=== PATIENT | female | born 1940 | race Caucasian/White ===

== ENCOUNTER 2018-06-22 20:29 | Inpatient (IN) | payer MEDICARE, OTHER ==
[~2018-06-22] VITALS: Ht 162.6 cm; Wt 86.7 kg
--- NOTE | 2018-06-22 20:43 | ED General ---
General Stated Complaint: FEELS ILL,FEVER Source of Information: Patient Exam Limitations: No Limitations History of Present Illness Date Seen by Provider: Jun 22, 2018 Time Seen by Provider: 20:40 Initial Comments To ER per EMS from home with reports of feeling ill and fever. Reportedly the fever was up to 103 pain she's had rhinorrhea, cough and some shortness of breath. She reports that she called 911 because she was too weak to get herself up. She's also had some diarrhea and nausea without vomiting for a few days. She denies chest pain. Denies abdominal pain. She does have known myasthenia gravis which is managed with mycophenolate, prednisone 2.5 mg by mouth daily, pyridostigmine 60mg, myrbetric. She has not missed any doses of these or stopped any of them however she has not had today's dosage of any of them. Primary care is Dr. CHINCHILLA. Timing/Duration: 2-3 Days Severity: Moderate Associated Systoms: Cough, Fever/Chills, Malaise, Nausea/Vomiting, Weakness Allergies and Home Medications Allergies Coded Allergies: azathioprine (Verified Allergy, Unknown, 06/22/18) methotrexate (Verified Allergy, Unknown, 06/22/18) sulfamethoxazole (Verified Allergy, Unknown, 06/22/18) trimethoprim (Verified Allergy, Unknown, 06/22/18) Patient Home Medication List Home Medication List Reviewed: Yes Review of Systems Review of Systems Constitutional: see HPI, malaise, weakness Respiratory: see HPI, cough, short of breath Cardiovascular: No chest pain Gastrointestinal: No abdominal pain; diarrhea, nausea Genitourinary: no symptoms reported Musculoskeletal: no symptoms reported Skin: no symptoms reported Psychiatric/Neurological: No Symptoms Reported Hematologic/Lymphatic: No Symptoms Reported Past Nnlqhja-Jmbfgd-Depjrm Hx Patient Social History Recent Foreign Travel: No Contact w/Someone Who Travel: No Physical Exam Vital Signs Vital Signs - First Documented 06/22/18 20:30 Temp 101.2 Pulse 91 Resp 20 B/P (MAP) 149/75 (99) Pulse Ox 92 Capillary Refill : Height, Weight, BMI Height: '" Weight: lbs. oz. kg; BMI Method: General Appearance: Chronically ill, Other (very weak but respiratory drive and air movement is normal. ) Eyes: Bilateral Eye Normal Inspection, Bilateral Eye PERRL, Bilateral Eye EOMI , Bilateral Eye Other (ptosis bilaterally) HEENT: PERRL/EOMI, Other (dry mucous membranes) Neck: Full Range of Motion, Normal Inspection Respiratory: Normal Breath Sounds, No Accessory Muscle Use, No Respiratory Distress Cardiovascular: Regular Rate, Rhythm, Normal Peripheral Pulses Gastrointestinal: Normal Bowel Sounds, Non Tender, Soft Extremity: Normal Capillary Refill, Normal Inspection Neurologic/Psychiatric: Alert, Oriented x3, No Motor/Sensory Deficits Skin: Normal Color, Warm/Dry Focused Exam Lactate Level 06/22/18 20:40: Lactic Acid Level 0.88 Lactic Acid Level Laboratory Tests Test 06/22/18 20:40 Lactic Acid Level 0.88 MMOL/L (0.50-2.00) Progress/Results/Core Measures Suspected Sepsis SIRS Temperature: Pulse: Respiratory Rate: Laboratory Tests 06/22/18 20:30: White Blood Count 5.7 Blood Pressure / Mean: 06/22/18 20:40: Lactic Acid Level 0.88 Laboratory Tests 06/22/18 20:30: Creatinine 1.21, Platelet Count 136, Total Bilirubin 0.7 Results/Orders Lab Results Laboratory Tests Test 06/22/18 20:30 06/22/18 20:40 Range/Units White Blood Count 5.7 4.3-11.0 10^3/uL Red Blood Count 3.98 L 4.35-5.85 10^6/uL Hemoglobin 12.2 11.5-16.0 G/DL Hematocrit 38 35-52 % Mean Corpuscular Volume 95 80-99 FL Mean Corpuscular Hemoglobin 31 25-34 PG Mean Corpuscular Hemoglobin Concent 32 32-36 G/DL Red Cell Distribution Width 14.4 10.0-14.5 % Platelet Count 136 130-400 10^3/uL Mean Platelet Volume 12.0 H 7.4-10.4 FL Neutrophils (%) (Auto) 59 42-75 % Lymphocytes (%) (Auto) 20 12-44 % Monocytes (%) (Auto) 21 H 0-12 % Eosinophils (%) (Auto) 0 0-10 % Basophils (%) (Auto) 0 0-10 % Neutrophils # (Auto) 3.4 1.8-7.8 X 10^3 Lymphocytes # (Auto) 1.1 1.0-4.0 X 10^3 Monocytes # (Auto) 1.2 H 0.0-1.0 X 10^3 Eosinophils # (Auto) 0.0 0.0-0.3 10^3/uL Basophils # (Auto) 0.0 0.0-0.1 10^3/uL Neutrophils % (Manual) 37 % Lymphocytes % (Manual) 33 % Monocytes % (Manual) 12 % Eosinophils % (Manual) 0 % Basophils % (Manual) 1 % Band Neutrophils 17 % Blood Morphology Comment NORMAL Sodium Level 135 135-145 MMOL/L Potassium Level 2.6 L 3.6-5.0 MMOL/L Chloride Level 92 L 98-107 MMOL/L Carbon Dioxide Level 30 21-32 MMOL/L Anion Gap 13 5-14 MMOL/L Blood Urea Nitrogen 21 H 7-18 MG/DL Creatinine 1.21 0.60-1.30 MG/DL Estimat Glomerular Filtration Rate 43 BUN/Creatinine Ratio 17 Glucose Level 94 70-105 MG/DL Calcium Level 9.0 8.5-10.1 MG/DL Corrected Calcium 9.1 8.5-10.1 MG/DL Magnesium Level 2.1 1.8-2.4 MG/DL Total Bilirubin 0.7 0.1-1.0 MG/DL Aspartate Amino Transf (AST/SGOT) 32 5-34 U/L Alanine Aminotransferase (ALT/SGPT) 14 0-55 U/L Alkaline Phosphatase 40 40-136 U/L Troponin I 0.028 <0.028 NG/ML B-Type Natriuretic Peptide 104.8 H <100.0 PG/ML Total Protein 6.4 6.4-8.2 GM/DL Albumin 3.9 3.2-4.5 GM/DL Thyroid Stimulating Hormone (TSH) 2.32 0.35-4.94 UIU/ML Free Thyroxine 1.17 0.70-1.48 NG/DL Lactic Acid Level 0.88 0.50-2.00 MMOL/L Micro Results Microbiology 06/22/18 Influenza Types A,B Antigen (JORDON) - Final, Complete My Orders Orders - ELEANOR LUCIANO APRN Cbc With Automated Diff (06/22/18 20:33) Comprehensive Metabolic Panel (06/22/18 20:33) Ua Culture If Indicated (06/22/18 20:33) Iv Heplock-Insert (Order) (06/22/18 20:33) Chest 1 View, Ap/Pa Only (06/22/18 20:33) Influenza A And B Antigens (06/22/18 20:33) Blood Culture (06/22/18 20:33) Lactic Acid Analyzer (06/22/18 20:33) Troponin I (06/22/18 20:33) Ekg Tracing (06/22/18 20:33) Thyroid Stimulating Hormone (06/22/18 20:36) Free T4 (Free Thyroxine) (06/22/18 20:36) Ns Iv 1000 Ml (Sodium Chloride 0.9%) (06/22/18 20:45) Ibuprofen Tablet (Motrin Tablet) (06/22/18 20:45) Pharmacy Communication (Pharmacy Communi (06/22/18 20:45) Ct Chest Wo (06/22/18 21:01) BNP (06/22/18 21:02) Manual Differential (06/22/18 20:30) Potassium Cl 10meq/50ml Ivpb (Kcl 10 Meq (06/22/18 21:30) Magnesium (06/22/18 21:28) Piperacillin Sodium/Tazobactam (Zosyn Vi (06/22/18 21:30) Prednisone Tablet (Deltasone Tablet) (06/22/18 21:45) Oseltamivir 75 Mg Capsule (Tamiflu 75 (06/22/18 21:45) Medications Given in ED Current Medications Medications Dose Ordered Sig/Erik Route Start Time Stop Time Status Last Admin Dose Admin Ibuprofen 800 mg ONCE ONCE PO 06/22/18 20:45 06/22/18 20:54 DC 06/22/18 21:25 800 MG Vital Signs/I&O 06/22/18 06/22/18 20:30 21:25 Temp 101.2 101.2 Pulse 91 Resp 20 B/P (MAP) 149/75 (99) Pulse Ox 92 Capillary Refill : Diagnostic Imaging Diagonstic Imaging: Xray, CT Plain Films/CT/US/NM/MRI: chest Comments NAME: KIRILL MCKEON [place] MED REC#: [id number] PT STATUS: REG ER : 1940 PHYSICIAN: ELEANOR LUCIANO RETORT PRESS OPERATOR ADMIT DATE: 06/22/18/ER Draft Date of Exam:06/22/18 CT CHEST WO PROCEDURE: CT chest without contrast. TECHNIQUE: Multiple contiguous axial images were obtained through the chest without the use of intravenous contrast. INDICATION: Shortness of breath and fever FINDINGS: There is left thoracic cage deformity from old healed fractures. There is a 12 mm hazy alveolar nodular opacity in the right middle lobe that is most likely inflammatory. Lungs are otherwise clear. There is no hilar or mediastinal lymphadenopathy. There is some calcific atherosclerosis of the aorta but no aneurysm. Images through the upper abdomen are unremarkable. There is no effusion or pneumothorax. IMPRESSION: Small patchy infiltrate in the right middle lobe suspicious for pneumonia. Dictated on workstation # [id number] Dict: 06/22/182117 Trans: 06/22/182121 PJE [id number] Interpreted by: MARK GILLIS MD Electronically signed by: NAME: KIRILL MCKEON [facility] REC#: [id number] PT STATUS: REG ER : 1940 PHYSICIAN: ELEANOR LUCIANO APRN ADMIT DATE: 06/22/18/ER Draft Date of Exam:06/22/18 CHEST 1 VIEW, AP/PA ONLY INDICATION: Cough and shortness of breath. EXAMINATION: Portable chest at 8:50 p.m. FINDINGS: Heart size and pulmonary vascularity are normal. Lungs are clear. There are no effusions or pneumothoraces. There are multiple old rib fractures in the left lateral thoracic cage. IMPRESSION: No acute abnormality in the chest. Dictated on workstation # [id number] Dict: 06/22/182109 Trans: 06/22/182120 PJE [id number] Interpreted by: MARK GILLIS MD Electronically signed by: Departure Communication (Admissions) Time/Spoke to Admitting Phy: 21:45 I discussed the case with Dr. Chahal auto parts salesperson for hospitalist. We will admit the patient, I'll place her in intensive care at least overnight for observation potassium is being replaced, Tamiflu, Zosyn. Recheck labs in the morning. We do not have pyridostigmine or myrbetriq here. Patient's daughter will bring these medications from home and give tonight's dose. I discussed CODE STATUS with the patient and daughter. Patient states that she does not want to have CPR or to be placed on a ventilator if her heart unexpectedly stops or if she stops breathing. As such we will make her DO NOT RESUSCITATE status. Daughter is at the bedside. Impression Primary Impression: Influenza A Additional Impressions: Myasthenia gravis with acute exacerbation Hypokalemia Right middle lobe pneumonia Qualified Codes: J18.1 - Lobar pneumonia, unspecified organism Disposition: ADMITTED INPATIENT Condition: Stable Admissions Decision to Admit Reason: Admit from ER (General) Decision to Admit/Date: Jun 22, 2018 Time/Decision to Admit Time: 20:42 ELEANOR LUCIANO APRN Jun 22, 2018 20:43
[2018-06-22] MEDS ORDERED: NS IV 1000 ML 1,000 ML IV SCH (20:45)
[2018-06-22] MEDS ORDERED: IBUPROFEN 800 MG (MOTRIN) TAB PO ONE (20:45)
[2018-06-22 20:47] LABS: BASOPHILS % (AUTO) 0 % (0-10); EOSINOPHILS % (AUTO) 0 % (0-10); HEMATOCRIT 38 % (35-52); HEMOGLOBIN 12.2 G/DL (11.5-16.0); LYMPHOCYTES # (AUTO) 1.1 X 10^3 (1.0-4.0); LYMPHOCYTES % (AUTO) 20 % (12-44); MEAN CORPUSCULAR HEMOGLOBIN 31 PG (25-34); MEAN CORPUSCULAR HGB CONC 32 G/DL (32-36); MEAN CORPUSCULAR VOLUME 95 FL (80-99); MONOCYTES # (AUTO) 1.2 X 10^3 (0.0-1.0); MONOCYTES % (AUTO) 21 % (0-12); NEUTROPHILS # (AUTO) 3.4 X 10^3 (1.8-7.8); NEUTROPHILS % (AUTO) 59 % (42-75); PLATELET COUNT 136 10^3/uL (130-400); RED CELL DISTRIBUTION WIDTH 14.4 % (10.0-14.5); WHITE BLOOD COUNT 5.7 10^3/uL (4.3-11.0)
[2018-06-22 21:04] LABS: ALBUMIN 3.9 GM/DL (3.2-4.5); BILIRUBIN,TOTAL 0.7 MG/DL (0.1-1.0); POTASSIUM 2.6 MMOL/L (3.6-5.0); TOTAL PROTEIN 6.4 GM/DL (6.4-8.2)
--- NOTE | 2018-06-22 21:20 | NUR ---
1L IV NS BOLUS FROM EMS COMPLETE.
--- NOTE | 2018-06-22 21:22 | Diagnostic Imaging Report ---
INDICATION: Cough and shortness of breath. EXAMINATION: Portable chest at 8:50 p.m. FINDINGS: Heart size and pulmonary vascularity are normal. Lungs are clear. There are no effusions or pneumothoraces. There are multiple old rib fractures in the left lateral thoracic cage. IMPRESSION: No acute abnormality in the chest. Dictated by: Dictated on workstation # [id number]
--- NOTE | 2018-06-22 21:23 | Diagnostic Imaging Report ---
PROCEDURE: CT chest without contrast. TECHNIQUE: Multiple contiguous axial images were obtained through the chest without the use of intravenous contrast. INDICATION: Shortness of breath and fever FINDINGS: There is left thoracic cage deformity from old healed fractures. There is a 12 mm hazy alveolar nodular opacity in the right middle lobe that is most likely inflammatory. Lungs are otherwise clear. There is no hilar or mediastinal lymphadenopathy. There is some calcific atherosclerosis of the aorta but no aneurysm. Images through the upper abdomen are unremarkable. There is no effusion or pneumothorax. IMPRESSION: Small patchy infiltrate in the right middle lobe suspicious for pneumonia. Dictated by: Dictated on workstation # [id number]
[2018-06-22 21:25] LABS: FREE T4 (FREE THYROXINE) 1.17 NG/DL (0.70-1.48)
[2018-06-22] MEDS ORDERED: POTASSIUM CL 10MEQ/50ML IVPB 50 ML IV ONE (21:30)
[2018-06-22] MEDS ORDERED: PIPERACILLIN SODIUM/TAZOBACTAM 4.5 GM in NS (IVPB) 100 ML IV ONE (21:30)
[2018-06-22 21:32] LABS: BAND NEUTROPHILS 17 %; BASOPHILS % (MANUAL) 1 %; EOSINOPHILS % (MANUAL) 0 %; LYMPHOCYTES % (MANUAL) 33 %; MONOCYTES % (MANUAL) 12 %; NEUTROPHILS % (MANUAL) 37 %; RBC MORPH NORMAL
[2018-06-22] MEDS ORDERED: predniSONE 1 MG TAB PO ONE (21:45)
[2018-06-22] MEDS ORDERED: OSELTAMIVIR 75 MG (TAMIFLU) CAPSULE PO ONE (21:45)
[2018-06-22 21:48] LABS: CREATININE SERUM 1.21 MG/DL (0.60-1.30)
[2018-06-22] MEDS ORDERED: predniSONE 5 MG TAB PO ONE (22:45)
[2018-06-22] MEDS ORDERED: NS IV 500 ML 500 ML ONE (23:12)
[2018-06-22] MEDS ORDERED: NS IV 500 ML 500 ML IV ONE (23:13)
[2018-06-22 23:59] VITALS: BP 124/62
[2018-06-23] VITALS (17 sets, daily range): BP systolic 81–145; BP diastolic 49–70
--- NOTE | 2018-06-23 | NUR ---
MIKEKIRILL Cal admitted to room CU1-1, with an admitting diagnosis of influenza A, pneumonia, hypokalemia, Myasthenia Gravis exacerbation, on 06/22/18 from ER via cart, accompanied by patient.KIRILL MCKEON introduced to surroundings, call light, bed controls, phone, TV, temperature control, lights, meal times, smoking policy, visitor policy, side rail policy, bathrooms and showers. Patient Rights given to patient in the handbook. KIRILL MCKEON verbalizes understanding that [facility] is not responsible for the loss or damage to any personal effects or valuables that are kept in the patients posession during their hospitalization. The following Patient Care Plans were discussed with the patient: Discharge Planning, fatigue, fluid volume deficit, and pain. KIRILL MCKEON verbalizes understanding of Interdisciplinary Patient Education. Patient was informed about the Rapid Response Team and its purpose.
[2018-06-23] MEDS ORDERED: NS IV 1000 ML 1,000 ML ONE (00:08)
[2018-06-23] MEDS ORDERED: RT-ALBUTEROL/IPRATROPIUM 3 ML (DUONEB) VIAL ONE (01:15)
[2018-06-23] MEDS: POTASSIUM CL 10 MEQ/50 ML IVPB (PRE-MIX) IV SCH ×4 (01:28→03:54)
[2018-06-23] MEDS ORDERED: ONDANSETRON 4 MG/2 ML (SDV) Z0FRAN IV PRN (01:30)
[2018-06-23] MEDS ORDERED: RT-ALBUTEROL/IPRATROPIUM 3 ML (DUONEB) VIAL INH PRN (01:45)
[2018-06-23] MEDS: PIPERACILLIN/TAZO 4.5 GM/NS 100 ML IV SCH ×6 (03:54→18:19)
[2018-06-23 04:22] LABS: BASOPHILS % (AUTO) 0 % (0-10); EOSINOPHILS % (AUTO) 0 % (0-10); HEMATOCRIT 35 % (35-52); HEMOGLOBIN 10.9 G/DL (11.5-16.0); LYMPHOCYTES # (AUTO) 0.4 X 10^3 (1.0-4.0); LYMPHOCYTES % (AUTO) 7 % (12-44); MEAN CORPUSCULAR HEMOGLOBIN 30 PG (25-34); MEAN CORPUSCULAR HGB CONC 32 G/DL (32-36); MEAN CORPUSCULAR VOLUME 96 FL (80-99); MEAN PLATELET VOLUME 10.9 FL (7.4-10.4); MONOCYTES # (AUTO) 0.7 X 10^3 (0.0-1.0); MONOCYTES % (AUTO) 12 % (0-12); NEUTROPHILS # (AUTO) 4.5 X 10^3 (1.8-7.8); NEUTROPHILS % (AUTO) 80 % (42-75); PLATELET COUNT 117 10^3/uL (130-400); RED CELL DISTRIBUTION WIDTH 14.6 % (10.0-14.5); WHITE BLOOD COUNT 5.6 10^3/uL (4.3-11.0)
[2018-06-23 04:41] LABS: CALCIUM 7.8 MG/DL (8.5-10.1); CREATININE SERUM 1.01 MG/DL (0.60-1.30); PHOSPHORUS 3.5 MG/DL (2.3-4.7); POTASSIUM 2.9 MMOL/L (3.6-5.0)
[2018-06-23] MEDS: NS IV 1000 ML 1,000 ML IV SCH ×3 (07:40→16:13)
[2018-06-23] MEDS ORDERED: FLU QUADRIvalent (5+ YOA) 2018-2019 (AFLURIA) 0.5 ML IM ONE (08:15)
--- NOTE | 2018-06-23 08:20 | Pulmonary Consultation ---
History of Present Illness History of Present Illness Date of Consultation 06/23/18 08:14 Time Seen by Provider: 08:15 Date of Admission History of Present Illness 78yo presented to ED via EMS secondary to worsening SOB, weakness, body aches, nausea, diarrhea, and fever. Tm 103. Upon EMS arrival pt was to weak to get herself up. Denies CP, abdominal pain. She has a hx of myasthenia gravis and she is on Mycophenolate, prednisone 2.5mg daily, and myrbetric. Influenza is positive for A. She has severe Hypokalemia at 2.9. I am consulted for pulmonary /CC management. Allergies and Home Medications Allergies Coded Allergies: azathioprine (Verified Allergy, Unknown, 06/22/18) methotrexate (Verified Allergy, Unknown, 06/22/18) sulfamethoxazole (Verified Allergy, Unknown, 06/22/18) trimethoprim (Verified Allergy, Unknown, 06/22/18) Past Eueeyki-Roggjr-Kvwhgd Hx Patient Social History Alcohol Use: Denies Use Recreational Drug Use: No Smoking Status: Never a Smoker 2nd Hand Smoke Exposure: No Recent Foreign Travel: No Contact w/Someone Who Travel: No Recent Infectious Disease Expo: No Recent Hopitalizations: No Physical Abuse: No Sexual Abuse: No Seasonal Allergies Seasonal Allergies: No Past Medical History Surgeries: Yes Gallbladder, Hysterectomy, Rectal Respiratory: No Cardiac: Yes Neurological: Yes (MYESTHENIA GRAVIS) Genitourinary: No Gastrointestinal: No Musculoskeletal: No Endocrine: Yes Hypothyroidsim Cancer: No Psychosocial: No Integumentary: No Blood Disorders: No Sepsis Event Evaluation Height, Weight, BMI Height: 5'4.00" Weight: 191lbs. 1.0oz. 86.670043qx; 32.8 BMI Method:Stated Exam Exam Vital Signs Date Time Temp Pulse Resp B/P (MAP) Pulse Ox O2 Delivery O2 Flow Rate FiO2 06/23/18 07:03 60 06/23/18 07:00 59 22 102/59 (73) 94 Nasal Cannula 2.00 06/23/18 06:00 59 15 81/49 (60) 96 Nasal Cannula 2.00 06/23/18 05:00 75 18 108/66 (80) 96 Nasal Cannula 2.00 06/23/18 04:00 74 15 104/49 (67) 97 Nasal Cannula 2.00 06/23/18 04:00 97 Nasal Cannula 2.00 06/23/18 03:00 68 18 108/59 (75) 94 Nasal Cannula 2.00 06/23/18 02:00 81 21 131/66 (87) 94 Nasal Cannula 2.00 06/23/18 01:00 84 21 126/58 (80) 95 Nasal Cannula 2.00 06/23/18 01:00 71 95 28 06/23/18 01:00 95 Nasal Cannula 2.00 06/23/18 00:16 67 06/23/18 00:00 96 Nasal Cannula 2.00 06/23/18 00:00 96 Nasal Cannula 2.00 06/22/18 23:59 98.9 76 20 124/62 (82) 98 Nasal Cannula 2.00 06/22/18 23:43 97.9 69 18 113/65 (81) 97 Nasal Cannula 2.00 06/22/18 23:30 96 NIV CPAP 2.00 06/22/18 21:25 101.2 06/22/18 20:30 101.2 91 20 149/75 (99) 92 I & O 06/23/18 07:00 Intake Total 1550 ml Balance 1550 ml Height & Weight Height: 5'4.00" Weight: 191lbs. 1.0oz. 86.839343xq; 32.8 BMI Method:Stated General Appearance: Chronically ill, Other (very weak but respiratory drive and air movement is normal. ) HEENT: PERRL/EOMI, Other (dry mucous membranes) Neck: Full Range of Motion, Normal Inspection Respiratory: Normal Breath Sounds, No Accessory Muscle Use, No Respiratory Distress Cardiovascular: Regular Rate, Rhythm, Normal Peripheral Pulses Capillary Refill: Less Than 3 Seconds Extremity: Normal Capillary Refill, Normal Inspection Neurologic/Psychiatric: Alert, Oriented x3, No Motor/Sensory Deficits Skin: Normal Color, Warm/Dry Results Lab Laboratory Tests 06/22/18 20:30 06/23/18 04:05 Assessment/Plan Assessment/Plan Influenza A -Continue Tamiflu RML PNA with dyspnea and hypoxia -SVNS -Oxygen -Continue Zosyn Severe hypokalemia -replace -Monitor Dehydration -IVF Bradycardia -Monitor Hx of myasthenia Gravis -Continue home meds weakness/debility -PT/OT HEMANTH OH DO Jun 23, 2018 08:20
[2018-06-23] MEDS: RT-ALBUTEROL/IPRATROPIUM 3 ML (DUONEB) VIAL INH SCH ×3 (08:49→19:59)
[2018-06-23] MEDS ORDERED: KCL 10 MEQ TAB (MICRO K) PO ONE ×2 (08:54→09:15)
[2018-06-23] MEDS: POTASSIUM CL 10MEQ/50ML IVPB 50 ML IV SCH ×6 (09:07→09:11)
[2018-06-23] MEDS: OSELTAMIVIR 75 MG (TAMIFLU) CAPSULE PO SCH ×2 (09:08→20:20)
[2018-06-23] MEDS ORDERED: KCL 10 MEQ TAB (MICRO K) PO NR ×2 (09:16→15:23)
[2018-06-23] MEDS ORDERED: PATIENT MAY USE OWN MEDS, ALL MC SCH (09:30)
--- NOTE | 2018-06-23 09:52 | Diagnostic Imaging Report ---
INDICATION: Shortness of breath. COMPARISON: 06/22/2018. FINDINGS: Single view of the chest demonstrates cardiac enlargement without overt pulmonary edema. Chronic interstitial changes are seen bilaterally. There is no pneumothorax or large effusion. Left-sided rib deformities are again noted. IMPRESSION: Cardiac enlargement without overt pulmonary edema or acute infiltrate. Dictated by: Dictated on workstation # [id number]
[2018-06-23] MEDS ORDERED: CITA20TA9 PO (11:07)
[2018-06-23] MEDS ORDERED: METO2.5T PO (11:08)
[2018-06-23] MEDS ORDERED: SACU1TAB PO (11:08)
[2018-06-23] MEDS ORDERED: RIVA10TA PO (11:09)
[2018-06-23] MEDS ORDERED: LEVO88TA54 PO (11:09)
[2018-06-23] MEDS ORDERED: FURO40TA4 PO (11:11)
[2018-06-23] MEDS ORDERED: POTA10TA10 PO (11:11)
[2018-06-23] MEDS ORDERED: PRAM0.5T9 PO (11:12)
[2018-06-23] MEDS ORDERED: AMLO5TAB9 PO (11:12)
[2018-06-23] MEDS ORDERED: MONT10TA24 PO (11:13)
[2018-06-23] MEDS ORDERED: SIMV20TA3 PO (11:13)
[2018-06-23] MEDS ORDERED: PYRI60TA PO (11:14)
[2018-06-23] MEDS ORDERED: MYCO500T3 PO (11:14)
[2018-06-23] MEDS ORDERED: PRED2.5T PO (11:19)
[2018-06-23] MEDS ORDERED: ALEN70TA5 PO (11:21)
--- NOTE | 2018-06-23 11:22 | NUR ---
SPOKE TO PATIENT SHE DID NOT KNOW OFF HAND WHAT SHE TOOK. SHE STATED SHE GETS HER MEDICATIONS FILLED AT [facility]. SHE BROUGHT IN 2 BOTTLES MYCOPHENOLATE, PYRIDOSTIGMINE. TOOK HER MEDICATION LIST OF THE ENTERAL HISTORY AND CALLED PHARMACY TO VERIFY.
--- NOTE | 2018-06-23 11:29 | History & Physical-Hospitalist ---
History of Present Illness HPI/Chief Complaint Patient is 78-year-old white female with myasthenia gravis who was in her baseline state of health up until the morning of her admission when she developed abrupt onset of chills body aches followed by a dry nonproductive cough. Because of extreme weakness with high fever and overwhelming fatigue she called the ambulance was brought to the emergency room where she was noted to be influenza A positive. She has refused flu shots thinking that she was worse after the first an apparent only influenza vaccination she did receive many years ago. There is no history for anaphylaxis. Date Seen 06/23/18 Time Seen by a Provider: 07:30 Attending Physician Theodore Franks MD PCP Edgardo Knight DO Referring Physician Date of Admission Jun 22, 2018 at 21:34 Home Medications & Allergies Home Medications Reviewed patient Home Medication Reconciliation performed by pharmacy medication reconciliations software support technician and/or nursing. Patients Allergies have been reviewed. Allergies Allergies Coded Allergies azathioprine (Verified Allergy, Unknown, 06/22/18) methotrexate (Verified Allergy, Unknown, 06/22/18) sulfamethoxazole (Verified Allergy, Unknown, 06/22/18) trimethoprim (Verified Allergy, Unknown, 06/22/18) Past Udknzcc-Oobzhx-Rtofdi Hx Past Med/Social Hx: Reviewed and Corrections made Patient Social History Alcohol Use: Denies Use Recreational Drug Use: No Smoking Status: Never a Smoker 2nd Hand Smoke Exposure: No Recent Foreign Travel: No Contact w/other who traveled: No Recent Hopitalizations: No Recent Infectious Disease Expo: No Seasonal Allergies Seasonal Allergies: No Past Medical History Surgeries: Gallbladder, Hysterectomy, Rectal Endocrine: Hypothyroidsim History of Blood Disorders: No Review of Systems Constitutional: chills, fever, malaise Respiratory: cough, dyspnea on exertion; No hemoptysis, No orthopnea, No phlegm , No short of breath, No stridor, No wheezing, No other Gastrointestinal: other (Patient had several loose stools without evidence for abdominal pain melena or bright red blood per rectum.) Physical Exam Physical Exam Vital Signs Vital Signs - First Documented 06/22/18 06/22/18 06/23/18 20:30 23:30 01:00 Temp 101.2 Pulse 91 Resp 20 B/P (MAP) 149/75 (99) Pulse Ox 92 O2 Delivery NIV CPAP O2 Flow Rate 2.00 FiO2 28 Capillary Refill : Less Than 3 Seconds Height, Weight, BMI Height: 5'4.00" Weight: 191lbs. 1.0oz. 86.427606cz; 32.8 BMI Method:Stated General Appearance: Other (Fatigued) HEENT: PERRL/EOMI, TMs Normal, Normal ENT Inspection, Pharynx Normal Respiratory: Chest Non Tender, Lungs Clear, Normal Breath Sounds, No Accessory Muscle Use, No Respiratory Distress Cardiovascular: Regular Rate, Rhythm, No Edema, No Gallop, No JVD, No Murmur, Normal Peripheral Pulses Gastrointestinal: Normal Bowel Sounds, No Organomegaly, No Pulsatile Mass, Non Tender, Soft Extremity: Normal Capillary Refill, Normal Inspection, Normal Range of Motion, Non Tender, No Calf Tenderness, No Pedal Edema Results Results/Procedures Labs Laboratory Tests 06/22/18 20:30 06/23/18 04:05 Patient resulted labs reviewed. Assessment/Plan Admission Diagnosis 1. Influenza with likely right middle lobe pneumonia in an individual who is immunocompromised secondary to myasthenia gravis medication. Antiviral therapy in the form of Tamiflu has been initiated as well as antibiotic therapy for community-acquired pneumonia. We'll continue to monitor patient condition improving with rehydration. Discussed the serious nature of influenza especially in individuals who are immunocompromised as she meets this criteria considering below. This was discussed in layman's terms and was strongly recommended that she receive influenza vaccination yearly as minimal wrists are outweighed by significant benefit. Discussed that she received vaccination studies have indicated she significantly reduces the risk for hospitalization and . 2. Myasthenia gravis and tinea home medications including CellCept and Mestinon. Admission Status: Inpatient Order (span 2 midnights) Reason for Inpatient Admission: See admission diagnosis Critical Care Critically Ill Patient Clinical Quality Measures DVT/VTE Risk/Contraindication: Risk Factor Score Per Nursin RFS Level Per Nursing on Admit: 3=High THEODORE FRANKS MD Jun 23, 2018 11:29
[2018-06-23] MEDS ORDERED: NON-FORMULARY MEDICATION 1 EA EA (Alendronate Sodium 70 MG) PO SCH (12:45)
[2018-06-23 14:32] LABS: CALCIUM 7.8 MG/DL (8.5-10.1); POTASSIUM 3.6 MMOL/L (3.6-5.0)
--- NOTE | 2018-06-23 15:36 | NUR ---
REPORT RECEIVED FROM JULI DUARTE, ICU. THIS RN WILL AWAIT PTS ARRIVAL TO ROOM [id number]
[2018-06-23] MEDS: PYRIDOSTIGMINE 60 MG PO SCH ×2 (15:49→18:20)
[2018-06-23] MEDS: Mycophenolate Mofetil 500 MG PO SCH (16:11)
[2018-06-23] MEDS: SACUBITRIL/VALSARTAN 24/26 MG (ENTRESTO) TABLET PO SCH (20:20)
[2018-06-23] MEDS: ACETAMINOPHEN 500 MG TAB (TYLENOL) PO PRN (21:44)
--- NOTE | 2018-06-23 21:54 | NUR ---
2125 PT TEMP 102.[address] FRANKS ABOUT PT TEMP. NEW ORDERS TO GIVE TYLENOL 1G PO Q6 PRN. WILL CONTINUO TO MONITOR
[2018-06-23] MEDS: HYDROcodone/APAP 5 MG/325 MG (LORTAB) TAB PO PRN (23:18)
--- NOTE | 2018-06-24 00:08 | NUR ---
2315 PT C/O LEG PAIN AND REQUESTING SOMETHING FOR PAIN. SPOKE WITH DR FRANKS AND NEW ORDER RECEIVED OF HYDROCODONE 5/325 Q4 PRN
[2018-06-24] MEDS: RT-ALBUTEROL/IPRATROPIUM 3 ML (DUONEB) VIAL INH SCH ×3 (01:27→14:06)
[2018-06-24] MEDS: PIPERACILLIN/TAZO 4.5 GM/NS 100 ML IV SCH ×6 (02:46→18:34)
[2018-06-24 03:50] VITALS: BP 107/57
[2018-06-24 05:00] LABS: BASOPHILS % (AUTO) 0 % (0-10); EOSINOPHILS % (AUTO) 0 % (0-10); HEMATOCRIT 33 % (35-52); HEMOGLOBIN 10.3 G/DL (11.5-16.0); LYMPHOCYTES % (AUTO) 21 % (12-44); MEAN CORPUSCULAR HEMOGLOBIN 30 PG (25-34); MEAN CORPUSCULAR HGB CONC 31 G/DL (32-36); MEAN CORPUSCULAR VOLUME 96 FL (80-99); MEAN PLATELET VOLUME 10.9 FL (7.4-10.4); MONOCYTES # (AUTO) 0.7 X 10^3 (0.0-1.0); MONOCYTES % (AUTO) 14 % (0-12); NEUTROPHILS % (AUTO) 64 % (42-75); PLATELET COUNT 100 10^3/uL (130-400); RED CELL DISTRIBUTION WIDTH 14.6 % (10.0-14.5); WHITE BLOOD COUNT 4.6 10^3/uL (4.3-11.0)
[2018-06-24 05:21] LABS: BUN/CREATININE RATIO 16; CALCIUM 7.5 MG/DL (8.5-10.1); CARBON DIOXIDE 22 MMOL/L (21-32); CHLORIDE 108 MMOL/L (98-107); CREATININE SERUM 0.81 MG/DL (0.60-1.30); GFR ESTIMATED > 60; GLUCOSE 93 MG/DL (70-105); PHOSPHORUS 2.6 MG/DL (2.3-4.7); POTASSIUM 2.9 MMOL/L (3.6-5.0); SODIUM 140 MMOL/L (135-145)
[2018-06-24] MEDS: NS IV 1000 ML 1,000 ML IV SCH (05:21)
[2018-06-24] MEDS ORDERED: MAGNESIUM 1 GM/100 ML IVPB 100 ML IV SCH (06:00)
[2018-06-24] MEDS ORDERED: KCL 20 MEQ TAB (K-DUR) PO SCH (06:00)
[2018-06-24] MEDS ORDERED: POTASSIUM CL 10MEQ/50ML IVPB 50 ML IV SCH (06:00)
--- NOTE | 2018-06-24 06:06 | Pulmonary Progress Note ---
Sepsis Event Evaluation Height, Weight, BMI Height: 5'4.00" Weight: 191lbs. 1.0oz. 86.365144xz; 32.8 BMI Method:Stated Focused Exam Lactate Level 06/22/18 20:40: Lactic Acid Level 0.88 Exam Exam Vital Signs Date Time Temp Pulse Resp B/P (MAP) Pulse Ox O2 Delivery O2 Flow Rate FiO2 06/24/18 03:50 98.9 82 18 107/57 (74) 95 Nasal Cannula 2.00 06/24/18 01:27 95 Nasal Cannula 3.00 06/24/18 01:00 76 06/23/18 23:35 100.4 88 20 113/53 (73) 95 Nasal Cannula 2.00 06/23/18 22:20 101.0 06/23/18 21:44 102.8 06/23/18 21:00 Nasal Cannula 2.00 06/23/18 20:08 100.8 93 18 131/62 (85) 99 06/23/18 19:59 93 Nasal Cannula 06/23/18 19:00 97 06/23/18 16:30 Nasal Cannula 2.00 06/23/18 16:18 91 06/23/18 16:13 98.2 90 22 145/70 (95) 98 06/23/18 16:00 95 Nasal Cannula 2.00 06/23/18 15:00 87 115/59 (77) 98 Nasal Cannula 2.00 06/23/18 14:41 97 Nasal Cannula 2.00 06/23/18 14:09 75 06/23/18 14:00 78 120/62 (81) 99 Nasal Cannula 2.00 06/23/18 13:00 87 105/57 (73) 99 Nasal Cannula 2.00 06/23/18 12:00 95 Nasal Cannula 2.00 06/23/18 12:00 77 126/69 (88) 98 Nasal Cannula 2.00 06/23/18 11:00 68 104/60 (75) 97 Nasal Cannula 2.00 06/23/18 10:00 81 113/53 (73) 98 Nasal Cannula 2.00 06/23/18 09:00 70 22 112/52 (72) 95 Nasal Cannula 2.00 06/23/18 08:49 95 Nasal Cannula 2.00 06/23/18 08:00 95 Nasal Cannula 2.00 06/23/18 08:00 98.2 94 Nasal Cannula 2.00 06/23/18 07:03 60 06/23/18 07:00 59 22 102/59 (73) 94 Nasal Cannula 2.00 I & O 06/24/18 07:00 Intake Total 1230 ml Balance 1230 ml Height & Weight Height: 5'4.00" Weight: 191lbs. 1.0oz. 86.138440pa; 32.8 BMI Method:Stated General Appearance: Other (Fatigued) HEENT: PERRL/EOMI, TMs Normal, Normal ENT Inspection, Pharynx Normal Neck: Full Range of Motion, Normal Inspection Respiratory: Chest Non Tender, Lungs Clear, Normal Breath Sounds, No Accessory Muscle Use, No Respiratory Distress Cardiovascular: Regular Rate, Rhythm, No Edema, No Gallop, No JVD, No Murmur, Normal Peripheral Pulses Capillary Refill: Less Than 3 Seconds Extremity: Normal Capillary Refill, Normal Inspection, Normal Range of Motion, Non Tender, No Calf Tenderness, No Pedal Edema Neurologic/Psychiatric: Alert, Oriented x3, No Motor/Sensory Deficits Skin: Normal Color, Warm/Dry Results Lab Laboratory Tests 06/22/18 20:30 06/23/18 04:05 06/23/18 14:12 06/24/18 04:55 Assessment/Plan Assessment/Plan Influenza A -Continue Tamiflu RML PNA with dyspnea and hypoxia -SVNS -Oxygen -Continue Zosyn hypokalemia -replace -Monitor Dehydration - improved -IVF - decrease to 30cc/hr Bradycardia -Monitor Hx of myasthenia Gravis -Continue home meds weakness/debility -PT/OT HEMANTH OH DO Jun 24, 2018 06:06
[2018-06-24] MEDS ORDERED: KCL 10 MEQ TAB (MICRO K) PO ONE (06:15)
[2018-06-24] MEDS: Mycophenolate Mofetil 500 MG PO SCH ×2 (06:33→17:52)
[2018-06-24] MEDS: predniSONE 5 MG TAB PO SCH (06:33)
[2018-06-24] MEDS: POTASSIUM CL 10MEQ/50ML IVPB 50 ML IV SCH ×4 (06:47→10:05)
[2018-06-24 08:00] VITALS: BP 130/72
[2018-06-24] MEDS: KCL 10 MEQ TAB (MICRO K) PO SCH (08:06)
[2018-06-24] MEDS: SACUBITRIL/VALSARTAN 24/26 MG (ENTRESTO) TABLET PO SCH ×2 (08:06→21:12)
[2018-06-24] MEDS: HYDROcodone/APAP 5 MG/325 MG (LORTAB) TAB PO PRN (08:06)
[2018-06-24] MEDS: LEVOTHYROXINE 88 MCG (LEVOTHORID) TAB PO SCH (08:07)
[2018-06-24] MEDS: OSELTAMIVIR 75 MG (TAMIFLU) CAPSULE PO SCH (08:07)
[2018-06-24] MEDS: amLODIPine 5 MG (NORVASC) TAB PO SCH (08:07)
[2018-06-24] MEDS: MONTELUKAST 10 MG (SINGULAIR) TAB PO SCH (08:07)
[2018-06-24] MEDS: SIMvastatin 20 MG (ZOCOR) TAB PO SCH (08:07)
[2018-06-24] MEDS: PRAMIPEXOLE 0.5 MG TAB (MIRAPEX) PO SCH (08:07)
[2018-06-24] MEDS: RIVAROXABAN 10 MG TABLET (XARELTO) PO SCH (08:07)
[2018-06-24] MEDS: PYRIDOSTIGMINE 60 MG PO SCH ×3 (08:16→21:12)
--- NOTE | 2018-06-24 09:09 | Diagnostic Imaging Report ---
INDICATION: Shortness of breath COMPARISON: 06/23/2018 FINDINGS: Single view of the chest demonstrates cardiac enlargement with slightly increased central vascular congestion. There was no pneumothorax or large effusion. Osseous structures are stable. IMPRESSION: Cardiac enlargement with slightly increased central vascular congestion. Dictated by: Dictated on workstation # [id number]
--- NOTE | 2018-06-24 09:58 | Progress Note-Hospitalist ---
Subjective HPI/CC On Admission Date Seen by Provider: Jun 24, 2018 Time Seen by Provider: 08:00 Patient is 78-year-old white female with myasthenia gravis who was in her baseline state of health up until the morning of her admission when she developed abrupt onset of chills body aches followed by a dry nonproductive cough. Because of extreme weakness with high fever and overwhelming fatigue she called the ambulance was brought to the emergency room where she was noted to be influenza A positive. She has refused flu shots thinking that she was worse after the first an apparent only influenza vaccination she did receive many years ago. There is no history for anaphylaxis. Subjective/Events-last exam Patient reports that she is feeling better this morning. Reports dry nonproductive cough with no chills. MAXIMUM TEMPERATURE was around 101 just lower and last night. She reports being up to the bathroom unassisted without significant difficulty. She was eating breakfast and denying nausea. She denies shortness of breath or chest pain at rest. Focused Exam Lactate Level 06/22/18 20:40: Lactic Acid Level 0.88 Objective Exam Vital Signs Vital Signs Date Time Temp Pulse Resp B/P (MAP) Pulse Ox O2 Delivery O2 Flow Rate FiO2 06/24/18 08:10 Nasal Cannula 2.00 06/24/18 07:06 69 06/24/18 03:50 98.9 18 107/57 (74) 95 06/23/18 01:00 28 Capillary Refill : Less Than 3 Seconds General Appearance: No Apparent Distress Respiratory: No Accessory Muscle Use, No Respiratory Distress, Other (Right anterior rales as well as posterior left side sounds clear no wheezing noted with regular respiration.) Cardiovascular: Regular Rate, Rhythm, No Edema, No Gallop, No JVD, No Murmur Gastrointestinal: Normal Bowel Sounds, No Organomegaly, No Pulsatile Mass, Non Tender, Soft Extremity: No Pedal Edema Results/Procedures Lab Laboratory Tests 06/23/18 14:12 06/24/18 04:55 Patient resulted labs reviewed. Assessment/Plan Assessment and Plan Assess & Plan/Chief Complaint 1. Influenza with likely right middle lobe pneumonia in an individual who is immunocompromised secondary to myasthenia gravis medication. Antiviral therapy in the form of Tamiflu has been initiated as well as antibiotic therapy for community-acquired pneumonia. We'll continue to monitor patient condition improving with rehydration. Doubt bacterial superinfection but will continue antibiotics for now. 2. Myasthenia gravis and tinea home medications including CellCept and Mestinon. Critical Care Critical Care: Critically Ill Patient Clinical Quality Measures DVT/VTE Risk/Contraindication: Risk Factor Score Per Nursin RFS Level Per Nursing on Admit: 3=High CATRACHITA FRANKS MD Jun 24, 2018 09:58
[2018-06-24 12:00] VITALS: BP 133/62
[2018-06-24 16:00] VITALS: BP 139/71
[2018-06-24 20:00] VITALS: BP 140/65
[2018-06-24] MEDS: OSELTAMIVIR 30 MG (TAMIFLU) CAPSULE PO SCH (21:12)
[2018-06-24 23:52] VITALS: BP_SYST 160; BP_SYST 177; BP_DIAS 74; BP_DIAS 84
[2018-06-25] MEDS: ACETAMINOPHEN 500 MG TAB (TYLENOL) PO PRN (00:06)
[2018-06-25] MEDS: RT-ALBUTEROL/IPRATROPIUM 3 ML (DUONEB) VIAL INH SCH ×4 (01:12→15:10)
[2018-06-25] MEDS: PIPERACILLIN/TAZO 4.5 GM/NS 100 ML IV SCH ×4 (03:28→10:45)
[2018-06-25] MEDS: HYDROcodone/APAP 5 MG/325 MG (LORTAB) TAB PO PRN (03:28)
[2018-06-25 03:31] VITALS: BP 127/73
[2018-06-25 04:59] LABS: BASOPHILS % (AUTO) 0 % (0-10); EOSINOPHILS % (AUTO) 1 % (0-10); HEMATOCRIT 34 % (35-52); HEMOGLOBIN 10.8 G/DL (11.5-16.0); LYMPHOCYTES # (AUTO) 1.2 X 10^3 (1.0-4.0); LYMPHOCYTES % (AUTO) 23 % (12-44); MEAN CORPUSCULAR HEMOGLOBIN 31 PG (25-34); MEAN CORPUSCULAR HGB CONC 32 G/DL (32-36); MEAN CORPUSCULAR VOLUME 95 FL (80-99); MEAN PLATELET VOLUME 11.2 FL (7.4-10.4); MONOCYTES # (AUTO) 0.6 X 10^3 (0.0-1.0); MONOCYTES % (AUTO) 11 % (0-12); NEUTROPHILS # (AUTO) 3.4 X 10^3 (1.8-7.8); NEUTROPHILS % (AUTO) 65 % (42-75); PLATELET COUNT 121 10^3/uL (130-400); RED CELL DISTRIBUTION WIDTH 14.5 % (10.0-14.5); WHITE BLOOD COUNT 5.2 10^3/uL (4.3-11.0)
[2018-06-25 05:19] LABS: BUN/CREATININE RATIO 12; CALCIUM 7.7 MG/DL (8.5-10.1); CARBON DIOXIDE 21 MMOL/L (21-32); CHLORIDE 105 MMOL/L (98-107); CREATININE SERUM 0.76 MG/DL (0.60-1.30); GFR ESTIMATED > 60; GLUCOSE 117 MG/DL (70-105); MAGNESIUM 1.6 MG/DL (1.8-2.4); PHOSPHORUS 1.4 MG/DL (2.3-4.7); POTASSIUM 3.2 MMOL/L (3.6-5.0); SODIUM 137 MMOL/L (135-145)
[2018-06-25] MEDS: predniSONE 5 MG TAB PO SCH (06:35)
[2018-06-25] MEDS: Mycophenolate Mofetil 500 MG PO SCH ×2 (06:35→16:09)
--- NOTE | 2018-06-25 07:12 | Pulmonary Progress Note ---
ENRIQUEPAOLA Chairez STUDENT 06/25/18 0712: Subjective Date Seen by a Provider: Jun 25, 2018 Sepsis Event Evaluation Height, Weight, BMI Height: 5'4.00" Weight: 191lbs. 1.0oz. [id number]; 32.8 BMI Method:Stated Focused Exam Lactate Level 06/22/18 20:40: Lactic Acid Level 0.88 Exam Exam Vital Signs Date Time Temp Pulse Resp B/P (MAP) Pulse Ox O2 Delivery O2 Flow Rate FiO2 06/25/18 03:31 98.5 85 18 127/73 (91) 96 Nasal Cannula 2.00 06/25/18 01:14 94 Nasal Cannula 2.00 06/25/18 01:00 99.2 06/25/18 00:06 99.9 06/24/18 23:52 99.9 85 19 160/74 (102) 96 Nasal Cannula 2.00 06/24/18 21:00 Nasal Cannula 2.00 06/24/18 20:00 99.2 77 22 140/65 (90) 96 Nasal Cannula 2.00 06/24/18 16:00 99.1 73 20 139/71 (93) 98 Nasal Cannula 2.00 06/24/18 14:22 96 Nasal Cannula 3.00 06/24/18 12:00 99.4 69 20 133/62 (85) 96 Nasal Cannula 2.00 06/24/18 10:53 97 Nasal Cannula 3.00 06/24/18 08:10 Nasal Cannula 2.00 06/24/18 08:00 99.0 77 18 130/72 (91) 94 Nasal Cannula 2.00 I & O 06/25/18 07:00 Intake Total 2500 ml Balance 2500 ml Height & Weight Height: 5'4.00" Weight: 191lbs. 1.0oz. 86.986584zj; 32.8 BMI Method:Stated General Appearance: No Apparent Distress HEENT: PERRL/EOMI, TMs Normal, Normal ENT Inspection, Pharynx Normal Neck: Full Range of Motion, Normal Inspection Respiratory: No Accessory Muscle Use, No Respiratory Distress, Other (Right anterior rales as well as posterior left side sounds clear no wheezing noted with regular respiration.) Cardiovascular: Regular Rate, Rhythm, No Edema, No Gallop, No JVD, No Murmur Capillary Refill: Less Than 3 Seconds Extremity: No Pedal Edema Neurologic/Psychiatric: Alert, Oriented x3, No Motor/Sensory Deficits Skin: Normal Color, Warm/Dry Results Lab Laboratory Tests 06/23/18 14:12 06/24/18 04:55 06/25/18 04:30 Assessment/Plan Assessment/Plan Influenza A -Continue Tamiflu RML PNA with dyspnea and hypoxia -SVNS -Oxygen -Continue Zosyn hypokalemia, hypophos, hypomag -replace -Monitor Dehydration - improved -IVF at 30 cc/hr Bradycardia- resolved -Monitor Hx of myasthenia Gravis -Continue home meds weakness/debility -PT/OT HEMANTH OH DO 06/25/18 0846: Subjective Time Seen by a Provider: 08:43 Subjective/Events-last exam Persistent cough and fatigue. Exam Exam General Appearance: No Apparent Distress HEENT: PERRL/EOMI, TMs Normal, Normal ENT Inspection, Pharynx Normal Neck: Full Range of Motion, Normal Inspection Respiratory: No Accessory Muscle Use, No Respiratory Distress Cardiovascular: Regular Rate, Rhythm, No Edema, No Gallop, No JVD, No Murmur Capillary Refill: Less Than 3 Seconds Extremity: No Pedal Edema Neurologic/Psychiatric: Alert, Oriented x3, No Motor/Sensory Deficits Skin: Normal Color, Warm/Dry Assessment/Plan Assessment/Plan Influenza A -Tamiflu RML PNA with dyspnea and hypoxia -SVNS -Oxygen -Zosyn Dehydration - improved -IVF at 30 cc/hr Bradycardia- resolved -Monitor Hx of myasthenia Gravis -Continue home meds weakness/debility -PT/OT PAOLA NUNEZ STUDENT Jun 25, 2018 07:12 HEMANTH OH DO Jun 25, 2018 08:46
--- NOTE | 2018-06-25 07:53 | Diagnostic Imaging Report ---
Portable erect AP chest at 3:04 a.m. INDICATION: Respiratory distress. FINDINGS: There is a better inspiratory effort on this study than on the prior exam of 06/24/2018. Both the heart and the central pulmonary vascularity do seem less prominent. There is only mild pulmonary congestion still present. There is no sign of pneumonia or of a significant pleural effusion. The mediastinum is not widened. The osseous structures show no evidence for an acute bony abnormality. The extensive post-traumatic changes involving the left thorax and left clavicle seen on the prior study are again evident. IMPRESSION: The appearance of the chest has improved as the heart has decreased in size and there is less pulmonary congestion. Clinical followup is recommended. Dictated by: Dictated on workstation # [id number]
[2018-06-25 07:58] VITALS: BP 133/60
[2018-06-25] MEDS: LEVOTHYROXINE 88 MCG (LEVOTHORID) TAB PO SCH (08:03)
[2018-06-25] MEDS: KCL 10 MEQ TAB (MICRO K) PO SCH (08:04)
[2018-06-25] MEDS: MONTELUKAST 10 MG (SINGULAIR) TAB PO SCH (08:04)
[2018-06-25] MEDS: SACUBITRIL/VALSARTAN 24/26 MG (ENTRESTO) TABLET PO SCH (08:04)
[2018-06-25] MEDS: OSELTAMIVIR 30 MG (TAMIFLU) CAPSULE PO SCH (08:04)
[2018-06-25] MEDS: RIVAROXABAN 10 MG TABLET (XARELTO) PO SCH (08:05)
[2018-06-25] MEDS: SIMvastatin 20 MG (ZOCOR) TAB PO SCH (08:05)
[2018-06-25] MEDS: PRAMIPEXOLE 0.5 MG TAB (MIRAPEX) PO SCH (08:05)
[2018-06-25] MEDS: amLODIPine 5 MG (NORVASC) TAB PO SCH (08:06)
[2018-06-25] MEDS: PYRIDOSTIGMINE 60 MG PO SCH ×2 (08:06→13:21)
[2018-06-25] MEDS ORDERED: METOLAZONE 2.5 MG (ZAROXOLYN) TAB PO SCH (09:00)
[2018-06-25] MEDS ORDERED: OSEL30CA PO (10:19)
[2018-06-25] MEDS ORDERED: AMOX-358 PO (10:19)
--- NOTE | 2018-06-25 10:19 | Discharge Summary-Hospitalist ---
Diagnosis/Chief Complaint Date of Admission Jun 22, 2018 at 21:34 Date of Discharge Discharge Date: Jun 25, 2018 Admission Diagnosis 1. Influenza with likely right middle lobe pneumonia in an individual who is immunocompromised secondary to myasthenia gravis medication. Antiviral therapy in the form of Tamiflu has been initiated as well as antibiotic therapy for community-acquired pneumonia. We'll continue to monitor patient condition improving with rehydration. Discussed the serious nature of influenza especially in individuals who are immunocompromised as she meets this criteria considering below. This was discussed in layman's terms and was strongly recommended that she receive influenza vaccination yearly as minimal wrists are outweighed by significant benefit. Discussed that she received vaccination studies have indicated she significantly reduces the risk for hospitalization and . 2. Myasthenia gravis and tinea home medications including CellCept and Mestinon. Discharge Summary Discharge Physical Exam Allergies: Coded Allergies: azathioprine (Verified Allergy, Unknown, 06/22/18) methotrexate (Verified Allergy, Unknown, 06/22/18) sulfamethoxazole (Verified Allergy, Unknown, 06/22/18) trimethoprim (Verified Allergy, Unknown, 06/22/18) Vitals & I&Os Vital Signs Date Time Temp Pulse Resp B/P (MAP) Pulse Ox O2 Delivery O2 Flow Rate FiO2 06/25/18 10:22 93 Nasal Cannula 1.00 06/25/18 07:58 98.6 69 18 133/60 (84) 06/23/18 01:00 28 General Appearance: No Apparent Distress, WD/WN Respiratory: Lungs Clear, No Respiratory Distress Cardiovascular: Regular Rate, Rhythm, No Murmur Neurologic/Psychiatric: Alert, Oriented x3 Hospital Course Pt was admitted for influenza and hypoxia for which she was treated with Tamiflu. She was also found to have a RML pneumonia and was treated with Zosyn. She responded well and had an uncomplicated hospital course. She was requesting DC to home on the day of her discharge. She was tested for home oxygen and required 1 liter continuously to maintain her oxygen saturations and this was arranged. She was transitioned to Augmentin to complete her antibiotics and her Tamiflu was relabeled for her to take at home. She was discharged home in stable condition. Labs (last 24 hrs) Laboratory Tests 06/25/18 04:30: White Blood Count 5.2, Red Blood Count 3.53L, Hemoglobin 10.8L, Hematocrit 34L, Mean Corpuscular Volume 95, Mean Corpuscular Hemoglobin 31, Mean Corpuscular Hemoglobin Concent 32, Red Cell Distribution Width 14.5, Platelet Count 121L, Mean Platelet Volume 11.2H, Neutrophils (%) (Auto) 65, Lymphocytes (%) (Auto) 23 , Monocytes (%) (Auto) 11, Eosinophils (%) (Auto) 1, Basophils (%) (Auto) 0, Neutrophils # (Auto) 3.4, Lymphocytes # (Auto) 1.2, Monocytes # (Auto) 0.6, Eosinophils # (Auto) 0.0, Basophils # (Auto) 0.0, Sodium Level 137, Potassium Level 3.2L, Chloride Level 105, Carbon Dioxide Level 21, Anion Gap 11, Blood Urea Nitrogen 9, Creatinine 0.76, Estimat Glomerular Filtration Rate > 60, BUN/ Creatinine Ratio 12, Glucose Level 117H, Calcium Level 7.7L, Phosphorus Level 1.4L, Magnesium Level 1.6L Microbiology 06/22/18 Blood Culture - Preliminary, Resulted No growth 06/22/18 Influenza Types A,B Antigen (JORDON) - Final, Complete Patient resulted labs reviewed. Pending Labs Discussion & Recommendations Discharge Planning: >30 minutes discharge planning Discharge Home Medications: Active Scripts Active Reported Alendronate Sodium 70 Mg Tablet 70 Mg PO WEEK Prednisone 2.5 Mg Tablet 5 Mg PO DAILY Pyridostigmine [place] 60 Mg Tablet 60 Mg PO TID Mycophenolate Mofetil 500 Mg Tablet 500 Mg PO BID Simvastatin 20 Mg Tablet 20 Mg PO DAILY Montelukast Sodium 10 Mg Tablet 10 Mg PO DAILY Pramipexole Dihydrochloride (Pramipexole Di-HCl) 0.5 Mg Tablet 0.5 Mg PO DAILY Amlodipine Besylate 5 Mg Tablet 5 Mg PO DAILY Furosemide 40 Mg Tablet 40-80 Mg PO BID Potassium Chloride 10 Meq Tablet.er 50 Meq PO DAILY Levothyroxine Sodium 88 Mcg Tablet 88 Mcg PO DAILY Xarelto (Rivaroxaban) 10 Mg Tablet 10 Mg PO DAILY Entresto 24 mg-26 mg Tablet (Sacubitril/Valsartan) 1 Each Tablet 1 Tab PO BID Metolazone 2.5 Mg Tablet 2.5 Mg PO MOND & THURS Citalopram HBr (Citalopram Hydrobromide) 20 Mg Tablet 20 Mg PO DAILY Instructions to patient/family Please see electronic discharge instructions given to patient. Clinical Quality Measures DVT/VTE Risk/Contraindication: Risk Factor Score Per Nursin RFS Level Per Nursing on Admit: 3=High KAREEN ENRIQUEZ MD Jun 25, 2018 10:19
--- NOTE | 2018-06-25 10:27 | NUR ---
SPO2 DROPPED TO 87% TRYING TO GET OUT OF BED. PLACED PT BACK ON O2 @ 1 LPM. SPO2 INCREASED TO 93%. Addendum: 06/25/18 at 1027 by ELIZA SHERWOOD RT Amended: Links added.
[2018-06-25 12:45] VITALS: BP 128/67
[2018-06-25] MEDS ORDERED: RELABEL FOR HOME USE MC SCH (13:30)
--- NOTE | 2018-06-25 14:26 | D/C HH Face to Face Order ---
D/C Face to Face Orders Instructions for Patient Via [facility], Patient Instructions/FollowUp: Please continue to take your medications as written. Please follow up with your PCP in the next week. Physician to follow Patient: Dr Knight Discharge Diet for Home: No Restrictions Patient Data-Allergies,Ht & Wt Patient Allergies: Coded Allergies: azathioprine (Verified Allergy, Unknown, 06/22/18) methotrexate (Verified Allergy, Unknown, 06/22/18) sulfamethoxazole (Verified Allergy, Unknown, 06/22/18) trimethoprim (Verified Allergy, Unknown, 06/22/18) Height (Feet): 5 Height (Inches): 4.00 Weight (Pounds): 191 Weight (Ounces): 1.0 Home Health Need/Face to Face Date of Face to Face: Jun 25, 2018 Clinical Findings: Generalized weakness and fatigue, Shortness of breath I have seen Pt [id number]: Yes Discharged To: Home Diagnosis/Conditions: Flu, Pneumonia, Myasthenia gravis Patient is Homebound due to: Muscle weakness, Shortness of breath/distress Homebound Status Due to the above stated illness, injury or surgical procedure (medical condition or diagnosis) and associated clinical findings, the patient is homebound because of his/her inability to leave home except with aid of a supportive device and/or person AND leaving the home requires a considerable and taxing effort or is medically contraindicated. Pt req the following assistanc: Aid of another person Home Health Nursing Orders Home Health Services Order: Nursing Services, Physical Therapy-Evaluate & Treat Home Health Infusion Therapy Line Start Date: Jun 22, 2018 Line Type: Peripheral IV Site Location: Forearm Therapy Orders Therapy Orders: Physical Therapy, PT to assess for OT Therapy Specific Orders: Eval assistive deivces, Teach enviro modifications/ safety, Gait training, Increase strength/endurance Certify Stmt I certify that this patient is under my care and that I, a nurse practitioner or a physician; a patient observation assistant working with me, had a face to face encounter that - meets the physician face to face encounter requirements with this patient as dated. KAREEN ENRIQUEZ MD Jun 25, 2018 13:00
--- NOTE | 2018-06-25 14:49 | NUR ---
CM/SS spoke with the patient and her daughter at bedside. Patient would like DME of [facility] in [facility] and C with [facility] in [facility]. Choice forms in the patient file. Called to ensure that they had received info.
--- NOTE | 2018-06-25 14:55 | Physical Therapy Evaluation ---
PT Evaluation-General Medical Diagnosis Admission Date Jun 22, 2018 at 21:34 Medical Diagnosis: Influenza A, Myasthenia Gravis Onset Date: Jun 22, 2018 Therapy Diagnosis Therapy Diagnosis: Decreased activity tolerance Height/Weight Height (Feet): 5 Height (Inches): 4.00 Weight (Pounds): 191 Weight (Ounces): 1.0 Precautions Precautions/Isolations: Droplet Isolation, Fall Prevention, Standard Precautions Weight Bear Status Right Lower Extremity: Right Weight Bearing/Tolerated Left Lower Extremity: Left Weight Bearing/Tolerated Referral Physician: Dr. Torres Reason for Referral: Evaluation/Treatment Medical History Additional Medical History Myasthenia Gravis Social History Home: Single Level Current Living Status: Alone Entry Into Home: Stairs With Railing PT Steps Into Home: 2 Prior/Core FIM Prior Level of Function Therapy Code Descriptions/Definitions Functional [place] Measure: 0=Not Assessed/NA 4=Minimal Assistance 1=Total Assistance 5=Supervision or Setup 2=Maximal Assistance 6=Modified [place] 3=Moderate Assistance 7=Complete [place] Therapy Quality Codes: 6 Independent with activity with or without an assistive device 5 Patient requires set up or clean up by helper. Patient completes activity by themselves 4 Supervision or touching assist (CGA). [place] provide cues , steadying assist 3 The helper provides less than half the effort to complete the activity 2 The helper provides more than half the effort to complete the activity 1 Dependent. The helper does all the effort to complete an activity 7 Patient refused to complete or attempt activity 9 The patient did not perform the activity before the current illness or injury 88 Not attempted due to Medical conditions or safety concerns Functional Abilities and Goals: Independent: Patient completed the activities by him/herself, with or without an assistive device, with no assistance from a helper. Needed Some Help: Patient needed partial assistance from another person to complete activities. Dependent: A helper completed the activities for the patient. Unknown: Not Applicable: Bed Mobility: 7 Transfers (B,C,W/C) (FIM): 7 Gait: 6 Stairs: 6 Indoor Mobility (Ambulation): Independent Stairs: Independent Prior Devices Use: Other-see list below Prior Device Use: Single Pt Cane PT Evaluation-Current Subjective Pt in bed with daughter in room and agrees to PT. Reports that she is being discharged today as long as PT agrees. Pain Numeric Pain Scale: 0-No Pain Location: No Pain Reported Objective Patient Orientation: Person, Place, Situation, Normal For Age Attachments: Oxygen (1L) ROM/Strength ROM Lower Extremities WNL Strength Lower Extremities 4+/5 bilateral gross motor Integumentary/Posture Bowel Incontinence: No Bladder Incontinence: No Sensory Vision: Wears Glasses Hearing: Functional Sensation Right Lower Extremit: Intact Sensation Left Lower Extremity: Intact Transfers Therapy Code Descriptions/Definitions Functional [place] Measure: 0=Not Assessed/NA 4=Minimal Assistance 1=Total Assistance 5=Supervision or Setup 2=Maximal Assistance 6=Modified [place] 3=Moderate Assistance 7=Complete [place] Transfers (B, C, W/C) (FIM): 6 Scootin Rollin Supine to/from Sit: 6 Sit to/from Stand: 6 Gait Mode of Locomotion: Walk Gait (FIM): 1 Distance (FIM): 1=up to 49 ft Distance: 40' Gait Level of Assist: 6 Gait Persons Needed: 1 Gait Assistive Device: FWW Balance Sitting Static: Good Sitting Dynamic: Good Standing Static: Good Standing Dynamic: Good Assessment/Needs Pt was able to perform bed mobility indep. Pt did need min A to set up for shoe donning. Pt transfers from sit<>stand to FWW. Pt amb with FWW 20'x2 to use bathroom. Pt is indep with bathroom skills. Pt returned to bed and has all needs met. PT instructed pt to use walker when she goes home at first until she feels she has her complete strength back then she can return to her cane. Rehab Potential: Good Post Rehab Potential-Barriers: Co-morbidities PT Plan Problem List Problem List: Activity Tolerance Treatment/Plan Treatment Plan: Discontinue PT Treatment Plan: Other Treatment Duration: Jun 25, 2018 Frequency: Estimated Hrs Per Day: Other Patient and/or Family Agrees t: Yes Discharge Recommendations Therapy D/C Recommendations: Home w/ Family Support, Home Independently Time/GCodes Time In: 1403 Time Out: 1420 Total Billed Treatment Time: 17 Total Billed Treatment 1 visit EVmod 17 min BALTA WESTBROOK PT Jun 25, 2018 14:55
--- NOTE | 2018-06-27 09:21 | Physician Query Clarification ---
PQ-Conflicting Diagnosis Admission/Discharge Admission Date: Jun 22, 2018 at 21:34 Discharge Date: Jun 25, 2018 at 17:45 The medical record reflects the following clinical scenario: History/Risk Factors: FLU with pneumonia Clinical Findings: weakness, SOB, body aches Treatment: Tamiflu, Zosyn, Myasthenia gravis home meds Cellcept, Mestinon Question: Do you agree with the impression of the acute exacerbation of myasthenia gravis per ER physician Yared Phillip?. It is not documented as an exacerbation in the rest of the record. Please document a response below. PHYSICIAN RESPONSE Do you agree w/Consulting Dx?: Yes In responding to this query, please exercise your independent professional judgment. The purpose of this communication is to more accurately reflect the complexity of your patients condition. The fact that a question is asked does not imply that any particular answer is desired or expected. Thank you for your timely response to this clarification. Requestors name: Elvia THIS PHYSICIAN QUERY FORM IS A PERMANENT PART OF THE MEDICAL RECORD ELVIA ANDRADE Jun 27, 2018 09:21 KAREEN ENRIQUEZ MD Jun 27, 2018 16:34
== END 2018-06-25 17:45 | disposition home health service (06) | DRG 152 ==
LOC: ER 20:30 → ICU 21:34 → 4TH 06-23 16:22
PROVIDERS: ADMIT Internal Medicine; ATTEND Internal Medicine
DX: J11.1 Influenza due to unidentified influenza virus with other respiratory manifestations (principal); J18.1 Lobar pneumonia, unspecified organism; E86.0 Dehydration; G70.01 Myasthenia gravis with (acute) exacerbation; Z66 Do not resuscitate; E03.9 Hypothyroidism, unspecified; R00.1 Bradycardia, unspecified; E87.6 Hypokalemia; Z79.899 Other long term (current) drug therapy; Z79.52 Long term (current) use of systemic steroids; E83.39 Other disorders of phosphorus metabolism; E83.42 Hypomagnesemia
CPT/HCPCS: 36415; 71045; 71250; 80048; 80053; 83605; 83735; 83880; 84100; 84439; 84443; 84484; 85007; 85025; 85027; 87040; 87804; 93005; 94640; 94760; 94761; 96361; 96365

== ENCOUNTER 2018-06-27 22:08 | Emergency (ER) | payer MEDICARE, OTHER ==
[~2018-06-27] VITALS: Ht 162.6 cm; Wt 81.6 kg
[~2018-06-27 22:08] MED LIST: ALEN70TA5 PO; AMLO5TAB9 PO; AMOX-358 PO; CITA20TA9 PO; FURO40TA4 PO; LEVO88TA54 PO; METO2.5T PO; MONT10TA24 PO; MYCO500T3 PO; OSEL30CA PO; POTA10TA10 PO; PRAM0.5T9 PO; PRED2.5T PO; PYRI60TA PO; RIVA10TA PO; SACU1TAB PO; SIMV20TA3 PO
[2018-06-27] MEDS ORDERED: NS IV 1000 ML 1,500 ML IV ONE (22:30)
[2018-06-27] MEDS ORDERED: ONDANSETRON 4 MG/2 ML (SDV) Z0FRAN IV PRN (22:30)
--- NOTE | 2018-06-27 22:33 | ED GI ---
General Chief Complaint: Fever-Adult/Adol Stated Complaint: DIARRHEA,FEVER Source of Information: Patient, Family Exam Limitations: No Limitations History of Present Illness Date Seen by Provider: Jun 27, 2018 Time Seen by Provider: 22:12 Initial Comments Patient presents to ER by private conveyance with chief complaint that she was diagnosed 5 days ago with influenza and spent several days in the hospital and home Monday, 2 days ago. Today she started feeling poorly again having nausea vomiting and diarrhea again. She been on antibiotics outpatient for a pneumonia that was discovered while she was in the hospital. She is on mycophenolate for myasthenia gravis. She has history of atrial fibrillation. Allergies and Home Medications Allergies Coded Allergies: azathioprine (Verified Allergy, Unknown, 06/22/18) methotrexate (Verified Allergy, Unknown, 06/22/18) sulfamethoxazole (Verified Allergy, Unknown, 06/22/18) trimethoprim (Verified Allergy, Unknown, 06/22/18) Home Medications Alendronate Sodium 70 Mg Tablet, 70 MG PO WEEK, (Reported) Amlodipine Besylate 5 Mg Tablet, 5 MG PO DAILY, (Reported) Amoxicillin/Potassium Clav 1 Each Tablet, 1 EACH PO BID Prescribed by: KAREEN ENRIQUEZ on 06/25/18 1409 Citalopram Hydrobromide 20 Mg Tablet, 20 MG PO DAILY, (Reported) Furosemide 40 Mg Tablet, 40-80 MG PO BID, (Reported) Levothyroxine Sodium 88 Mcg Tablet, 88 MCG PO DAILY, (Reported) Metolazone 2.5 Mg Tablet, 2.5 MG PO MOND & THURS, (Reported) Montelukast Sodium 10 Mg Tablet, 10 MG PO DAILY, (Reported) Mycophenolate Mofetil 500 Mg Tablet, 500 MG PO BID, (Reported) Oseltamivir Phosphate 30 Mg Capsule, 30 MG PO BID Prescribed by: KAREEN ENRIQUEZ on 06/25/18 1409 Potassium Chloride 10 Meq Tablet.er, 50 MEQ PO DAILY, (Reported) Pramipexole Di-HCl 0.5 Mg Tablet, 0.5 MG PO DAILY, (Reported) Prednisone 2.5 Mg Tablet, 5 MG PO DAILY, (Reported) Pyridostigmine [place] 60 Mg Tablet, 60 MG PO TID, (Reported) Rivaroxaban 10 Mg Tablet, 10 MG PO DAILY, (Reported) Sacubitril/Valsartan 1 Each Tablet, 1 TAB PO BID, (Reported) Simvastatin 20 Mg Tablet, 20 MG PO DAILY, (Reported) Patient Home Medication List Home Medication List Reviewed: Yes Review of Systems Review of Systems Constitutional: No chills, No diaphoresis; fever, malaise, weakness EENTM: No Blurred Vision, No Eye Pain, No Eye Tearing, No Ear Drainage Respiratory: Denies Cough, Denies Shortness of Air, Denies Wheezing Cardiovascular: Denies Chest Pain, Denies Edema Gastrointestinal: See HPI; Denies Abdomen Distended, Denies Abdominal Pain, Denies Constipated; Diarrhea, Nausea, Poor Appetite, Poor Fluid Intake, Vomiting Genitourinary: Denies Burning, Denies Discharge, Denies Drainage, Denies Frequency Musculoskeletal: No back pain, No joint pain, No joint swelling Skin: No pruritus, No rash Psychiatric/Neurological: Denies Headache, Denies Numbness, Denies Paresthesia Past Bwjtein-Fccdzd-Cmftyy Hx Patient Social History Alcohol Use: Denies Use Recreational Drug Use: No Smoking Status: Never a Smoker 2nd Hand Smoke Exposure: No Recent Foreign Travel: No Contact w/Someone Who Travel: No Recent Hopitalizations: No Seasonal Allergies Seasonal Allergies: No Past Medical History Surgeries: Yes Gallbladder, Hysterectomy, Rectal Respiratory: No Cardiac: Yes Neurological: Yes (MYESTHENIA GRAVIS) Genitourinary: No Gastrointestinal: No Musculoskeletal: No Endocrine: Yes Hypothyroidsim Cancer: No Psychosocial: No Integumentary: No Blood Disorders: No Physical Exam Vital Signs Vital Signs - First Documented 06/27/18 06/27/18 22:20 23:00 Temp 99.9 Pulse 136 Resp 18 B/P (MAP) 112/85 (94) Pulse Ox 94 O2 Delivery Room Air O2 Flow Rate 2.00 Capillary Refill : Height/Weight/BMI Height: 5'4.00" Weight: 191lbs. 1.0oz. 86.334508pl; 32.8 BMI Method:Stated General Appearance: WD/WN, mild distress HEENT: PERRL/EOMI, normal ENT inspection, pharynx normal Neck: non-tender, full range of motion, supple, normal inspection Respiratory: chest non-tender, lungs clear, normal breath sounds, no respiratory distress, no accessory muscle use Cardiovascular: normal peripheral pulses, regular rate, rhythm, no edema Peripheral Pulses: 2+ Dorsalis Pedis (R), 2+ Left Dors-Pedis (L) Gastrointestinal: normal bowel sounds (active), non tender, soft, no organomegaly, other (no mesenteric signs) Extremities: normal range of motion, normal inspection, normal capillary refill Neurologic/Psychiatric: alert, normal mood/affect, oriented x 3 Skin: normal color, warm/dry Focused Exam Lactate Level 06/27/18 22:25: Lactic Acid Level 1.74 Lactic Acid Level Laboratory Tests Test 06/27/18 22:25 Lactic Acid Level 1.74 MMOL/L (0.50-2.00) Progress/Results/Core Measures Results/Orders Lab Results Laboratory Tests Test 06/27/18 22:25 06/28/18 01:15 Range/Units White Blood Count 8.6 4.3-11.0 10^3/uL Red Blood Count 4.18 L 4.35-5.85 10^6/uL Hemoglobin 12.9 11.5-16.0 G/DL Hematocrit 38 35-52 % Mean Corpuscular Volume 92 80-99 FL Mean Corpuscular Hemoglobin 31 25-34 PG Mean Corpuscular Hemoglobin Concent 34 32-36 G/DL Red Cell Distribution Width 13.9 10.0-14.5 % Platelet Count 163 130-400 10^3/uL Mean Platelet Volume 11.0 H 7.4-10.4 FL Neutrophils (%) (Auto) 73 42-75 % Lymphocytes (%) (Auto) 15 12-44 % Monocytes (%) (Auto) 11 0-12 % Eosinophils (%) (Auto) 1 0-10 % Basophils (%) (Auto) 0 0-10 % Neutrophils # (Auto) 6.3 1.8-7.8 X 10^3 Lymphocytes # (Auto) 1.3 1.0-4.0 X 10^3 Monocytes # (Auto) 1.0 0.0-1.0 X 10^3 Eosinophils # (Auto) 0.1 0.0-0.3 10^3/uL Basophils # (Auto) 0.0 0.0-0.1 10^3/uL Prothrombin Time 18.3 H 12.2-14.7 SEC INR Comment 1.5 H 0.8-1.4 Activated Partial Thromboplast Time 40 H 24-35 SEC Sodium Level 135 135-145 MMOL/L Potassium Level 2.8 L 3.6-5.0 MMOL/L Chloride Level 93 L 98-107 MMOL/L Carbon Dioxide Level 26 21-32 MMOL/L Anion Gap 16 H 5-14 MMOL/L Blood Urea Nitrogen 18 7-18 MG/DL Creatinine 0.90 0.60-1.30 MG/DL Estimat Glomerular Filtration Rate > 60 BUN/Creatinine Ratio 20 Glucose Level 126 H 70-105 MG/DL Lactic Acid Level 1.74 0.50-2.00 MMOL/L Calcium Level 10.1 8.5-10.1 MG/DL Corrected Calcium 10.2 H 8.5-10.1 MG/DL Magnesium Level 1.3 L 1.8-2.4 MG/DL Total Bilirubin 0.8 0.1-1.0 MG/DL Aspartate Amino Transf (AST/SGOT) 72 H 5-34 U/L Alanine Aminotransferase (ALT/SGPT) 43 0-55 U/L Alkaline Phosphatase 47 40-136 U/L C-Reactive Protein High Sensitivity 19.79 H 0.00-0.50 MG/DL Total Protein 7.1 6.4-8.2 GM/DL Albumin 3.9 3.2-4.5 GM/DL Lipase 33 8-78 U/L Urine Color YELLOW Urine Clarity CLEAR Urine pH 7 5-9 Urine Specific [place] 1.010 L 1.016-1.022 Urine Protein 3+ H NEGATIVE Urine Glucose (UA) NEGATIVE NEGATIVE Urine Ketones 3+ H NEGATIVE Urine Nitrite NEGATIVE NEGATIVE Urine Bilirubin NEGATIVE NEGATIVE Urine Urobilinogen NORMAL NORMAL MG/DL Urine Leukocyte Esterase NEGATIVE NEGATIVE Urine RBC (Auto) 3+ H NEGATIVE Urine RBC 2-5 H /HPF Urine WBC 0-2 /HPF Urine Squamous Epithelial Cells 2-5 /HPF Urine Crystals NONE /LPF Urine Bacteria FEW H /HPF Urine Casts PRESENT /LPF Urine Hyaline Casts 0-2 H /LPF Urine Mucus MODERATE H /LPF Urine Culture Indicated CULTURE PENDING Micro Results Microbiology 06/27/18 C. difficile GD Antigen & Toxins - Final, Complete My Orders Orders - TENISHA ALCOCER Cbc With Automated Diff (06/27/18 22:18) Comprehensive Metabolic Panel (06/27/18 22:18) Hs C Reactive Protein (06/27/18 22:18) Lipase (06/27/18 22:18) Magnesium (06/27/18 22:18) Blood Culture (06/27/18 22:26) Sputum Culture (06/27/18 22:26) Urinalysis (06/27/18 22:26) Urine Culture (06/27/18 22:26) Protime With Inr (06/27/18 22:26) Partial Thromboplastin Time (06/27/18 22:26) Chest 1 View, Ap/Pa Only (06/27/18 22:26) Saline Lock/Iv-Start (06/27/18 22:26) Saline Lock/Iv-Start (06/27/18 22:26) Vital Signs Adult Sepsis Patie Q15M (06/27/18 22:26) Ondansetron Injection (Zofran Injectio (06/27/18 22:30) O2 (06/27/18 22:26) Remove Rings In Anticipation O (06/27/18 22:26) Lactic Acid Analyzer (06/27/18 22:26) Ns Iv 1000 Ml (Sodium Chloride 0.9%) (06/27/18 22:30) Ekg Tracing (06/27/18 22:26) Continuous Ekg Monitoring (06/27/18 22:26) Ns (Ivpb) (Sodium C... W/Diltiazem Injec (06/27/18 22:45) Diltiazem Injection (Cardizem Injection) (06/27/18 22:45) C Difficile Ag + Toxin A/B. (06/27/18 22:37) Isolation Central Supply Req (06/27/18 22:37) Potassium Cl 10meq/50ml Ivpb (Kcl 10 Meq (06/27/18 23:15) Magnesium 1 Gm/100 Ml Ivpb (Magnesium Nur (06/27/18 23:15) Ekg Tracing (06/27/18 23:15) Medications Given in ED Current Medications Medications Dose Ordered Sig/Erik Route Start Time Stop Time Status Last Admin Dose Admin Diltiazem HCl 10 mg ONCE ONCE IVP 06/27/18 22:45 06/27/18 22:46 DC 06/27/18 22:53 10 MG Magnesium Sulfate/ Dextrose 100 ml @ 100 mls/hr ONCE ONCE IV 06/27/18 23:15 06/28/18 00:14 DC 06/27/18 23:30 100 MLS/HR Ondansetron HCl 4 mg PRN PRN IV 06/27/18 22:30 06/27/18 22:53 DC 06/27/18 22:52 4 MG Potassium Chloride 50 ml @ 50 mls/hr ONCE ONCE IV 06/27/18 23:15 06/28/18 00:14 DC 06/28/18 00:30 50 MLS/HR Sodium Chloride 1,500 ml @ 1,500 mls/hr ONCE ONCE IV 06/27/18 22:30 06/27/18 23:29 DC 06/27/18 22:53 1,500 MLS/HR Vital Signs/I&O 06/27/18 06/27/18 22:20 23:00 Temp 99.9 Pulse 136 Resp 18 B/P (MAP) 112/85 (94) Pulse Ox 94 98 O2 Delivery Room Air Nasal Cannula O2 Flow Rate 2.00 Progress Progress Note #1: Time: 22:43 Progress Note Septic workup, 1500 cc for a 20 mL/kg bolus of IV fluids. We'll give her a little bolus of 10 mg Cardizem and put her on a drip. C. difficile toxin antigen. We'll hold off on antibiotics at this time to make sure that the previous antibiotics are not causing a C. difficile colitis.. Patient was treated with Zosyn for a right middle lobe pneumonia and sent home on oxygen 1 L by nasal cannula as well as Augmentin and Tamiflu. Her magnesium and potassium were both a little low so we'll recheck dose. Progress Note #2: Time: 23:10 Progress Note After the bolus her heart rate improved significantly down into the 80s and 90s and became a sinus rhythm. We had her on 5 mg Cardizem drip and her heart rate dropped into the 35-50 range. We immediately stopped the Cardizem drip and her heart rate recovered and has stayed in the 90-110 range. I suspect her tachycardia now that she is sinus is from her illness. Repeat EKG Progress Note #3: Time: 02:00 Progress Note Patient's electrolytes are still off and we have given her some potassium and magnesium through the IV and we'll encourage her to continue this orally. We've given her the option of an observation stay to get some more fluids and salts versus going home with nausea medicine and she would prefer to go home. We got her up and walked her around the ER with her cane and she did quite well. She is ready to go. Initial ECG Impression Date: Jun 27, 2018 Initial ECG Impression Time: 22:30 Initial ECG Rate: 170 Initial ECG Rhythm: A Fib/Flutter Initial ECG Intervals: QT (505) Initial ECG Impression: Atrial Fibrillation w/RVR Initial ECG Comparisson: Changed Comment Marck fibrillation with rapid ventricular response. Diagnostic Imaging Diagonstic Imaging: Xray Plain Films/CT/US/NM/MRI: chest (1v) Comments Unchanged from 2 days ago. No overt infiltrate consistent with pneumonia. Reviewed: Reviewed by Me Departure Impression Primary Impression: Gastroenteritis/colitis, infectious Additional Impressions: Atrial fibrillation with RVR Hypokalemia Hypomagnesemia Disposition: 01 HOME, SELF-CARE Condition: Improved Departure-Patient Inst. Decision time for Depature: 02:01 Referrals: GABRIEL CHINCHILLA DO (PCP/Family) Primary Care Physician Patient Instructions: Dehydration, Adult (DC) Add. Discharge Instructions: Continue to take your potassium as prescribed. child support officer some magnesium and take one 400 mg tablet twice a day with food. Do this for the next 4 days. Drink plenty of fluids. If you have nausea take one tablet of Zofran every 6 hours as needed. If you have diarrhea and cannot keep up with your drinking then take 2 tablets of Imodium followed by one tablet every 4 hours as needed. Follow-up with primary care early next week. All discharge instructions reviewed with patient and/or family. Voiced understanding. Scripts Ondansetron (Ondansetron Odt) 4 Mg Tab.rapdis 4 MG PO Q6H PRN for NAUSEA/VOMITING, #10 TAB 0 Refills Prov: TENISHA ALCOCER 06/28/18 Copy Copies To 1: GABRIEL CHINCHILLA TITUS J Jun 27, 2018 22:33
[2018-06-27 22:34] LABS: BASOPHILS % (AUTO) 0 % (0-10); EOSINOPHILS # (AUTO) 0.1 10^3/uL (0.0-0.3); EOSINOPHILS % (AUTO) 1 % (0-10); HEMATOCRIT 38 % (35-52); HEMOGLOBIN 12.9 G/DL (11.5-16.0); LYMPHOCYTES # (AUTO) 1.3 X 10^3 (1.0-4.0); LYMPHOCYTES % (AUTO) 15 % (12-44); MEAN CORPUSCULAR HEMOGLOBIN 31 PG (25-34); MEAN CORPUSCULAR HGB CONC 34 G/DL (32-36); MEAN CORPUSCULAR VOLUME 92 FL (80-99); MONOCYTES % (AUTO) 11 % (0-12); NEUTROPHILS # (AUTO) 6.3 X 10^3 (1.8-7.8); NEUTROPHILS % (AUTO) 73 % (42-75); PLATELET COUNT 163 10^3/uL (130-400); RED CELL DISTRIBUTION WIDTH 13.9 % (10.0-14.5); WHITE BLOOD COUNT 8.6 10^3/uL (4.3-11.0)
[2018-06-27 22:45] LABS: INR 1.5 (0.8-1.4); PROTHROMBIN TIME PATIENT 18.3 SEC (12.2-14.7)
[2018-06-27] MEDS ORDERED: DILTIAZEM 25 MG/5 ML INJ (CARDIZEM) VIAL IVP ONE (22:45)
[2018-06-27] MEDS ORDERED: DILTIAZEM INJECTION 125 MG in NS (IVPB) 100 ML IV SCH (22:45)
[2018-06-27 23:05] LABS: ALANINE AMINOTRANSFERASE 43 U/L (0-55); ALBUMIN 3.9 GM/DL (3.2-4.5); ALKALINE PHOSPHATASE 47 U/L (40-136); BILIRUBIN,TOTAL 0.8 MG/DL (0.1-1.0); BUN/CREATININE RATIO 20; CALCIUM 10.1 MG/DL (8.5-10.1); CARBON DIOXIDE 26 MMOL/L (21-32); CHLORIDE 93 MMOL/L (98-107); GFR ESTIMATED > 60; GLUCOSE 126 MG/DL (70-105); LIPASE 33 U/L (8-78); MAGNESIUM 1.3 MG/DL (1.8-2.4); POTASSIUM 2.8 MMOL/L (3.6-5.0); SODIUM 135 MMOL/L (135-145); TOTAL PROTEIN 7.1 GM/DL (6.4-8.2)
[2018-06-27] MEDS ORDERED: POTASSIUM CL 10MEQ/50ML IVPB 50 ML IV ONE (23:15)
[2018-06-27] MEDS ORDERED: MAGNESIUM 1 GM/100 ML IVPB 100 ML IV ONE (23:15)
[2018-06-28 01:23] LABS: BILIRUBIN,URINE NEGATIVE (NEGATIVE); CLARITY,URINE CLEAR; COLOR,URINE YELLOW; GLUCOSE, URINE (UA) NEGATIVE (NEGATIVE); KETONES,URINE 3+ (NEGATIVE); LEUKOCYTE ESTERASE ,URINE NEGATIVE (NEGATIVE); NITRITE,URINE NEGATIVE (NEGATIVE); PH,URINE 7 (5-9); PROTEIN,URINE 3+ (NEGATIVE); UROBILINOGEN,URINE NORMAL (NORMAL)
[2018-06-28 01:33] LABS: BACTERIA,URINE FEW /HPF; HYALINE CASTS, URINE 0-2 /LPF; WBC,URINE 0-2 /HPF
--- NOTE | 2018-06-28 01:45 | NUR ---
ASSISTED PT IN AMBULATING AROUND ED. PT STEADY ON FEET.
[2018-06-28] MEDS ORDERED: RX-ONDANSETRON 4 MG ODT (ZOFRAN) PPK #4 PO STA (02:08)
[2018-06-28] MEDS ORDERED: ONDA4TAB11 PO (02:08)
[2018-06-28 02:27] VITALS: BP 125/66
--- NOTE | 2018-06-28 07:04 | Diagnostic Imaging Report ---
INDICATION: Shortness of breath COMPARISON: 06/25/2018 FINDINGS: Single view of the chest demonstrates a cardiac enlargement with chronic interstitial changes. There is some slight central vascular congestion. There is no pneumothorax or large effusion. No focal infiltrate is seen. Osseous structures normal. IMPRESSION: Unchanged aeration of the lungs. Dictated by: Dictated on workstation # [id number]
== END 2018-06-28 02:27 | disposition home or self-care (01) ==
LOC: EDUNIT# 22:08 → ER 22:10
DX: K52.9 Noninfective gastroenteritis and colitis, unspecified (principal); I48.91 Unspecified atrial fibrillation; E87.6 Hypokalemia; E83.42 Hypomagnesemia; E03.9 Hypothyroidism, unspecified; Z88.2 Allergy status to sulfonamides; Z88.8 Allergy status to other drugs, medicaments and biological substances; Z79.52 Long term (current) use of systemic steroids; Z79.01 Long term (current) use of anticoagulants; Z87.01 Personal history of pneumonia (recurrent); Z90.710 Acquired absence of both cervix and uterus; Z98.890 Other specified postprocedural states
CPT/HCPCS: 36415; 51702; 71045; 80053; 81000; 83605; 83690; 83735; 85025; 85610; 85730; 86141; 87040; 87088; 87324; 87449; 93005; 93041

== ENCOUNTER 2018-07-19 11:05 | Emergency (ER) | payer MEDICARE, OTHER ==
[~2018-07-19] VITALS: Ht 162.6 cm; Wt 77.1 kg
[~2018-07-19 11:05] MED LIST changes: +ONDA4TAB11 PO
[2018-07-19] MEDS ORDERED: HYDR-3820 PO (11:41)
--- NOTE | 2018-07-19 11:43 | ED Trauma-Multisystem ---
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 Patient slipped on ice landing on right elbow, and face. Denies loss of consciousness feeling dizzy. Patient has some minor abrasions to face, nose, and reports chronic neck pain. No motor weakness in arms or legs loss of sensation. On exam, the patient is a skin tear over the extensor surface of her elbow with hematoma. She has no midline cervical pain or tenderness. She superficial abrasions over the left orbit patient's nose and maxilla. Tetanus is out of date. No other symptoms or complaints. Allergies and Home Medications Allergies Coded Allergies: azathioprine (Verified Allergy, Unknown, 07/19/18) methotrexate (Verified Allergy, Unknown, 07/19/18) sulfamethoxazole (Verified Allergy, Unknown, 07/19/18) trimethoprim (Verified Allergy, Unknown, 07/19/18) Home Medications Alendronate Sodium 70 Mg Tablet, 70 MG PO WEEK, (Reported) Amlodipine Besylate 5 Mg Tablet, 5 MG PO DAILY, (Reported) Citalopram Hydrobromide 20 Mg Tablet, 20 MG PO DAILY, (Reported) Furosemide 40 Mg Tablet, 40-80 MG PO BID, (Reported) Hydrocodone/Acetaminophen 1 Each Tablet, 1 TAB PO PRN, (Reported) Levothyroxine Sodium 88 Mcg Tablet, 88 MCG PO DAILY, (Reported) Metolazone 2.5 Mg Tablet, 2.5 MG PO MOND & THURS, (Reported) Montelukast Sodium 10 Mg Tablet, 10 MG PO DAILY, (Reported) Mycophenolate Mofetil 500 Mg Tablet, 500 MG PO BID, (Reported) Ondansetron 4 Mg Tab.rapdis, 4 MG PO Q6H PRN for NAUSEA/VOMITING Prescribed by: TENISHA ALCOCER on 06/28/18 0208 Potassium Chloride 10 Meq Tablet.er, 50 MEQ PO DAILY, (Reported) Pramipexole Di-HCl 0.5 Mg Tablet, 0.5 MG PO DAILY, (Reported) Prednisone 2.5 Mg Tablet, 5 MG PO DAILY, (Reported) Pyridostigmine [place] 60 Mg Tablet, 60 MG PO TID, (Reported) Rivaroxaban 10 Mg Tablet, 10 MG PO DAILY, (Reported) Sacubitril/Valsartan 1 Each Tablet, 1 TAB PO BID, (Reported) Simvastatin 20 Mg Tablet, 20 MG PO DAILY, (Reported) Patient Home Medication List Home Medication List Reviewed: Yes Review of Systems Review of Systems Constitutional: no symptoms reported Eyes: No Symptoms Reported Ears: No Symptoms Reported Nose: No Symptoms Reported Throat: No Symptoms to Report Musculoskeletal: see HPI, joint swelling, neck pain Past Ksadygy-Zowjgv-Zeyomc Hx Patient Social History 2nd Hand Smoke Exposure: No Recent Foreign Travel: No Contact w/Someone Who Travel: No Recent Hopitalizations: No Seasonal Allergies Seasonal Allergies: No Past Medical History Surgeries: Yes Gallbladder, Hysterectomy, Rectal Respiratory: No Cardiac: Yes Neurological: Yes (MYESTHENIA GRAVIS) Genitourinary: No Gastrointestinal: No Musculoskeletal: No Endocrine: Yes Hypothyroidsim Cancer: No Psychosocial: No Integumentary: No Blood Disorders: No Physical Exam Height, Weight, BMI Height: 5'4.00" Weight: 180lbs. 1.0oz. 81.964003ll; 32.8 BMI Method:Stated General Appearance: No Apparent Distress, WD/WN, Anxious Head: Swelling; No Active Bleeding, No Davila's Sign, No Ecchymosis, No Lacerations Eyes: Bilateral Eye Normal Inspection, Bilateral Eye PERRL Ears, Nose, Throat: Hearing Grossly Normal, No Evidence of ENT Injury Neck: No Tender Midline Cardiovascular: Regular Rate, Rhythm Respiratory: Chest Non Tender Extremity: Normal Capillary Refill, No Pedal Edema, Other (right elbow hematoma , skin tear.) Lio Coma Score Best Eye Response ([place]): (4) Open Spontaneously Best Verbal Response ([place]): (5) Oriented Best Motor Response ([place]): (6) Obeys Commands Lio Total: 15 Progress/Results/Core Measures Results/Orders My Orders Orders - RHONDA MAHONEY DO Dipht,Pertuss(Acell),Tet Adult (Boostrix (07/19/18 11:45) Fentanyl Injection (Sublimaze Injection (07/19/18 11:45) Ondansetron Injection (Zofran Injectio (07/19/18 11:45) Progress Progress Note : Time: 11:57 Progress Note Patient with closed head injury currently on anticoagulation therapy. Neurological intact, GCS 15. Unfortunately due to a technical issue, a CT scan is not available at this facility. Patient be transferred to [facility] Initial ECG Impression Date: Jul 19, 2018 Departure Impression Primary Impression: Head injury Additional Impressions: Neck pain Elbow injury Disposition: XFER SHT-TRM HOSP Condition: Stable Transfer Method of Transfer: EMS Departure-Patient Inst. Referrals: GABRIEL CHINCHILLA DO (PCP/Family) Primary Care Physician RHONDA MAHONEY DO Jul 19, 2018 11:43
[2018-07-19] MEDS ORDERED: fentaNYL INJECTION 100 MCG/2 ML AMP IVP ONE (11:45)
[2018-07-19] MEDS ORDERED: ONDANSETRON 4 MG/2 ML (SDV) Z0FRAN IVP ONE (11:45)
[2018-07-19] MEDS: TETANUS,DIPTH,PERTUSS P/F (BOOSTRIX) 0.5 ML VIAL IM ONE ×2 (11:58→12:03)
--- NOTE | 2018-07-19 12:20 | NUR ---
Patient states she has had a tetanus vaccine within the past year so the tetanus vaccine was not given.
--- NOTE | 2018-07-19 13:15 | NUR ---
VITALS ON ARRIVAL: 142/103, 94%, 75 HR, 16 RR, 96.9, PAIN 4/10.
--- NOTE | 2018-07-19 13:15 | NUR ---
PATIENT ARRIVED BY EMS FROM [facility]. A/O x3. DENIES LOSS OF CONSCIOUSNESS WITH FALL. SLIPPED ON ICE. SWELLING AND BRUISING TO RIGHT KNEE. PAIN IN KNEE AND ELBOW. ABRASION TO RIGHT HAND AND ACROSS BRIDGE OF NOSE. Addendum: 07/19/18 at 1401 by NELIDAAN Amendment undone in EDM - 07/19/18 at 1401 by SUSANORMAN VITALS ON ARRIVAL"
--- NOTE | 2018-07-19 13:54 | Diagnostic Imaging Report ---
PROCEDURE: CT head and CT cervical spine without contrast. TECHNIQUE: Multiple contiguous axial images were obtained through the brain and cervical spine without the use of intravenous contrast. Sagittal and coronal reformations through the cervical spine were then performed. INDICATION: Fall. Trauma to the face and head. COMPARISON: None. FINDINGS: CT head: The ventricles and cortical sulci are diffusely prominent, compatible with age-related volume loss. There are confluent areas of abnormal, low attenuation in the periventricular white matter. This is consistent with small vessel ischemic changes; age-indeterminate. There is no prior study available for comparison. There is no midline shift or mass-effect. No acute intra-axial hemorrhage is seen. There are no abnormal areas of increased or decreased density to suggest acute hemorrhage or edema. No extra-axial masses or collections are present. The bony calvarium is intact. The visualized paranasal sinuses are unremarkable. The mastoid air cells are clear. CT CERVICAL SPINE: Evaluation of static alignment demonstrates slight grade 1 anterolisthesis at C3-C4. Otherwise, static alignment is maintained. There is no evidence of jumped facets. Vertebral body heights are preserved. There is no evidence of acute fracture. No bony fragments are seen within the spinal canal. There are multilevel degenerative changes consisting of intervertebral disc height loss with anterior and posterior disc osteophyte complex formations. These changes appear greatest at the C5-C6 level. Pre-and paravertebral soft tissue structures are unremarkable. Note is made of calcified aortic atherosclerosis. Included portions of lung apices show scattered areas of ill-defined groundglass density within the included portions of the right upper lobe. IMPRESSION: 1. No acute intracranial abnormality. No CT evidence of mass, acute infarct or intracranial hemorrhage. 2. Small vessel ischemic changes in the periventricular and subcortical white matter; likely chronic. 3. No CT evidence acute fracture or dislocation of cervical spine. 4. Multilevel degenerative changes, greatest at C5-C6 level. 5. Nonspecific ill-defined scattered groundglass densities within the included portions of the right upper lobe. Findings could be on the basis of underlying infiltrate. Correlation with chest radiographs is recommended. Dictated by: Dictated on workstation # [id number]
--- NOTE | 2018-07-19 14:01 | ED Fall/Injury ---
General Chief Complaint: Trauma-Non Activation Stated Complaint: FALL; SOB Nursing Triage Note: Fell on ice. Has abrasion to nose, skin tear and hematoma to R elbow, small skin tear on R hand, and hematoma to R knee Source: patient, family Exam Limitations: no limitations History of Present Illness Date Seen by Provider: Jul 19, 2018 Time Seen by Provider: 13:58 Initial Comments To ER by EMS from [facility] emergency room. Patient slipped on the ice this morning and fell. She did hit her head. She is on Xarelto. Skin tear to the dorsal right elbow. She landed on the right knee and the right elbow as well. The CT scanner at [place] is down since she was transferred here to have this done. Family states that in the interim since being seen at [place] she has developed swelling to the right knee and the right elbow. They would like this evaluated. Tetanus is up-to-date. Location Injury Occurred: driveway at home Occurred: this morning Severity: moderate Injuries/Pain Location: upper extremity, lower extremity Loss of Consciousness: no loss of consciousness Associated Symptoms (Fall): Nausea/Vomiting, Neck Pain (states that it is no worse than usual) Allergies and Home Medications Allergies Coded Allergies: azathioprine (Verified Allergy, Unknown, 07/19/18) methotrexate (Verified Allergy, Unknown, 07/19/18) sulfamethoxazole (Verified Allergy, Unknown, 07/19/18) trimethoprim (Verified Allergy, Unknown, 07/19/18) Home Medications Alendronate Sodium 70 Mg Tablet, 70 MG PO WEEK, (Reported) Amlodipine Besylate 5 Mg Tablet, 5 MG PO DAILY, (Reported) Citalopram Hydrobromide 20 Mg Tablet, 20 MG PO DAILY, (Reported) Furosemide 40 Mg Tablet, 40-80 MG PO BID, (Reported) Hydrocodone/Acetaminophen 1 Each Tablet, 1 TAB PO PRN, (Reported) Levothyroxine Sodium 88 Mcg Tablet, 88 MCG PO DAILY, (Reported) Metolazone 2.5 Mg Tablet, 2.5 MG PO MOND & THURS, (Reported) Montelukast Sodium 10 Mg Tablet, 10 MG PO DAILY, (Reported) Mycophenolate Mofetil 500 Mg Tablet, 500 MG PO BID, (Reported) Ondansetron 4 Mg Tab.rapdis, 4 MG PO Q6H PRN for NAUSEA/VOMITING Prescribed by: TENISHA ALCOCER on 06/28/18 0208 Potassium Chloride 10 Meq Tablet.er, 50 MEQ PO DAILY, (Reported) Pramipexole Di-HCl 0.5 Mg Tablet, 0.5 MG PO DAILY, (Reported) Prednisone 2.5 Mg Tablet, 5 MG PO DAILY, (Reported) Pyridostigmine [place] 60 Mg Tablet, 60 MG PO TID, (Reported) Rivaroxaban 10 Mg Tablet, 10 MG PO DAILY, (Reported) Sacubitril/Valsartan 1 Each Tablet, 1 TAB PO BID, (Reported) Simvastatin 20 Mg Tablet, 20 MG PO DAILY, (Reported) Patient Home Medication List Home Medication List Reviewed: Yes Review of Systems Review of Systems Constitutional: see HPI Eyes: No Symptoms Reported Ears, Nose, Mouth, Throat: no symptoms reported Respiratory: no symptoms reported Cardiovascular: no symptoms reported Genitourinary: no symptoms reported Musculoskeletal: see HPI Skin: see HPI Psychiatric/Neurological: No Symptoms Reported Past Awnmsrz-Vqttsl-Uclcmu Hx Patient Social History 2nd Hand Smoke Exposure: No Recent Foreign Travel: No Contact w/Someone Who Travel: No Recent Infectious Disease Expo: No Recent Hopitalizations: No Physical Abuse: No Sexual Abuse: No Mistreated: No Fear: No Seasonal Allergies Seasonal Allergies: No Past Medical History Surgeries: Yes Gallbladder, Hysterectomy, Rectal Respiratory: No Cardiac: Yes Neurological: Yes (MYESTHENIA GRAVIS) Genitourinary: No Gastrointestinal: No Musculoskeletal: No Endocrine: Yes Hypothyroidsim Cancer: No Psychosocial: No Integumentary: No Blood Disorders: No Physical Exam Vital Signs Vital Signs - First Documented Capillary Refill : Less Than 3 Seconds Height, Weight, BMI Height: 5'4.00" Weight: 170lbs. 1.0oz. 77.918372kl; 32.8 BMI Method:Stated General Appearance: WD/WN, no apparent distress HEENT: PERRL/EOMI, normal ENT inspection, TMs normal, pharynx normal, other ( small laceration to the bridge of nose without deformity or swelling) Neck: non-tender, full range of motion Respiratory: normal breath sounds, no respiratory distress, no accessory muscle use Gastrointestinal: normal bowel sounds, non tender Extremities: normal range of motion (no pain in the hips with normal range of motion), other (right elbow has a 3 cm superficial skin tear. Covered with Steri -Strips and nonadherent gauze for range of motion of the elbow) Neurologic/Psychiatric: alert, normal mood/affect, oriented x 3 Skin: normal color, warm/dry, ecchymosis (to the right anterior knee anteriorly overlying the patella. She is able to lift the foot up off the bed.) [place] Coma Score Best Eye Response: (4) Open Spontaneously Best Verbal Response: (5) Oriented Best Motor Response: (6) Obeys Commands Lio Total: 15 Progress/Results/Core Measures Results/Orders My Orders Orders - ELEANOR LUCIANO APRN Ct Head/Cervical Spine Wo (07/19/18 12:54) Ct Maxillofacial Wo (07/19/18 13:57) Elbow, Right, 3 Views (07/19/18 13:57) Knee, Right, 3 Views (07/19/18 13:57) Chest 1 View, Ap/Pa Only (07/19/18 14:03) Medications Given in ED Current Medications Medications Dose Ordered Sig/Erik Route Start Time Stop Time Status Last Admin Dose Admin Fentanyl Citrate 25 mcg Q1H ONCE IVP 07/19/18 11:45 07/19/18 11:46 DC 07/19/18 11:59 25 MCG Ondansetron HCl 4 mg ONCE ONCE IVP 07/19/18 11:45 07/19/18 11:46 DC 07/19/18 11:59 4 MG Vital Signs/I&O 07/19/18 07/19/18 07/19/18 11:18 11:18 12:33 Temp 98.0 98.0 98.0 Pulse 74 74 71 Resp 16 16 16 B/P (MAP) 184/61 (102) 184/61 (102) 150/64 (92) Pulse Ox 98 98 96 Blood Pressure Mean: 92 Departure Impression Primary Impression: Head injury Qualified Codes: S09.90XA - Unspecified injury of head, initial encounter Additional Impressions: Elbow injury Qualified Codes: S59.901A - Unspecified injury of right elbow, initial encounter Neck pain Disposition: 02 XFER SHT-TRM HOSP Condition: Stable Departure-Patient Inst. Decision time for Depature: 14:57 Referrals: GABRIEL CHINCHILLA DO (PCP) Primary Care Physician Patient Instructions: Contusion (DC) Add. Discharge Instructions: 1. Return to ER for any concerns 2. Pain medication as directed 3. Follow-up with your doctor in 7-10 days for possible repeat x-ray of the elbow if you have any residual pain or swelling. All discharge instructions reviewed with patient and/or family. Voiced understanding. Scripts Hydrocodone/Acetaminophen ([place] 5-325 Tablet) 1 Each Tablet 1 EACH PO Q6H PRN for PAIN-MODERATE MDD 10, #10 TAB Prov: ELEANOR LUCIANO APRN 07/19/18 ELEANOR LUCIANO APRN Jul 19, 2018 14:01
--- NOTE | 2018-07-19 14:52 | Diagnostic Imaging Report ---
INDICATION: Right knee pain. Three views of right knee shows some narrowing of the medial and lateral tibiofemoral joint spaces and patellofemoral joint. There is no fracture or dislocation. There is some prepatellar soft tissue swelling. IMPRESSION: Prepatellar soft tissue swelling could be contusion versus adipose tissue. There is tricompartmental degenerative change. There is no acute osseous abnormality seen. Dictated by: Dictated on workstation # [id number]
--- NOTE | 2018-07-19 14:55 | Diagnostic Imaging Report ---
INDICATION: Fell on ice. EXAMINATION: Portable chest 09:25 p.m. FINDINGS: There is left upper lateral thoracic cage deformity consistent with old rib fractures. Heart and mediastinum are normal. Lungs are clear. There are no effusions or pneumothoraces. IMPRESSION: No acute abnormalities in the chest. Dictated by: Dictated on workstation # [id number]
--- NOTE | 2018-07-19 14:55 | Diagnostic Imaging Report ---
INDICATION: Right elbow injury from falling on ice. EXAMINATION: Three views of the right elbow were obtained. FINDINGS: There appears to be a joint effusion. There are no displaced fractures seen. IMPRESSION: There is a joint effusion present. In the setting of trauma with no acute fracture would recommend conservative treatment and followup radiographs in 7-10 days to rule out possibility of an occult fracture. Dictated by: Dictated on workstation # [id number]
[2018-07-19] MEDS ORDERED: HYDR-4226 PO (14:59)
--- NOTE | 2018-07-19 15:06 | Diagnostic Imaging Report ---
PROCEDURE: CT maxillofacial without contrast. TECHNIQUE: Multiple contiguous axial images were obtained through the facial bones without the use of intravenous contrast. INDICATION: Fall with laceration on the nose. FINDINGS: The mandible appears intact. The zygomatic arches are intact. Maxillary sinus zaman are intact. No displaced nasal bone fracture is seen. The orbital zaman appear to be intact. Both globes are unremarkable. IMPRESSION: No facial bone fracture is identified. Dictated by: Dictated on workstation # [id number]
[2018-07-19 15:15] VITALS: BP 150/64
== END 2018-07-19 15:27 | disposition short-term general hospital (02) ==
LOC: EDUNIT# 11:05 → ER FS 11:07 → ER 15:27
DX: S09.90XA Unspecified injury of head, initial encounter (principal); S59.901A Unspecified injury of right elbow, initial encounter; M54.2 Cervicalgia; E03.9 Hypothyroidism, unspecified; G70.00 Myasthenia gravis without (acute) exacerbation; R40.2142 Coma scale, eyes open, spontaneous, at arrival to emergency department; R40.2252 Coma scale, best verbal response, oriented, at arrival to emergency department; R40.2362 Coma scale, best motor response, obeys commands, at arrival to emergency department; Z88.2 Allergy status to sulfonamides; Z88.8 Allergy status to other drugs, medicaments and biological substances; Z79.52 Long term (current) use of systemic steroids; Z79.01 Long term (current) use of anticoagulants; Z90.710 Acquired absence of both cervix and uterus; W00.0XXA Fall on same level due to ice and snow, initial encounter; W22.09XA Striking against other stationary object, initial encounter
CPT/HCPCS: 70450; 70486; 71045; 72125; 73080; 73562; 90715; 96374; 96375

== ENCOUNTER 2018-08-09 19:53 | Outpatient (CLI) | payer MEDICARE, OTHER ==
[~2018-08-09 19:53] MED LIST changes: +HYDR-3820 PO; +HYDR-4226 PO
== END 2018-08-10 06:30 | disposition home or self-care (01) ==
LOC: SLEEP 19:53
PROVIDERS: ATTEND Nurse Practitioner Family
DX: G47.10 Hypersomnia, unspecified (principal); J11.00 Influenza due to unidentified influenza virus with unspecified type of pneumonia; I48.91 Unspecified atrial fibrillation
CPT/HCPCS: 95811

== ENCOUNTER → 2019-02-04 | Outpatient (CLI) | payer MEDICARE, OTHER ==
[~2019-02-04] MED LIST changes: +RIVA10T PO; -RIVA10TA PO
[2019-02-04 13:42] LABS: ALANINE AMINOTRANSFERASE 5 U/L (0-55); ALBUMIN 4.3 GM/DL (3.2-4.5); ALKALINE PHOSPHATASE 54 U/L (40-136); BILIRUBIN,TOTAL 0.3 MG/DL (0.1-1.0); BUN/CREATININE RATIO 26; CALCIUM 9.4 MG/DL (8.5-10.1); CARBON DIOXIDE 25 MMOL/L (21-32); CHLORIDE 103 MMOL/L (98-107); CREATININE SERUM 0.88 MG/DL (0.60-1.30); GFR ESTIMATED > 60; GLUCOSE 109 MG/DL (70-105); POTASSIUM 4.1 MMOL/L (3.6-5.0); SODIUM 143 MMOL/L (135-145); TOTAL PROTEIN 6.9 GM/DL (6.4-8.2)
== END ==
LOC: LAB FS 13:03
PROVIDERS: ATTEND Emergency Medicine
DX: E87.6 Hypokalemia (principal)
CPT/HCPCS: 36415; 80053

== ENCOUNTER → 2019-03-21 | Outpatient (CLI) | payer MEDICARE, OTHER ==
[2019-03-21 11:32] LABS: HEMATOCRIT 40 % (35-52); HEMOGLOBIN 12.6 G/DL (11.5-16.0); MEAN CORPUSCULAR HEMOGLOBIN 31 PG (25-34); MEAN CORPUSCULAR HGB CONC 32 G/DL (32-36); MEAN CORPUSCULAR VOLUME 98 FL (80-99); RED CELL DISTRIBUTION WIDTH 13.1 % (10.0-14.5); WHITE BLOOD COUNT 7.4 10^3/uL (4.3-11.0)
[2019-03-21 11:33] LABS: BASOPHILS % (AUTO) 1 % (0-10); EOSINOPHILS # (AUTO) 0.1 10^3/uL (0.0-0.3); EOSINOPHILS % (AUTO) 1 % (0-10); LYMPHOCYTES # (AUTO) 1.5 X 10^3 (1.0-4.0); LYMPHOCYTES % (AUTO) 20 % (12-44); MEAN PLATELET VOLUME 10.5 FL (7.4-10.4); MONOCYTES # (AUTO) 0.7 X 10^3 (0.0-1.0); MONOCYTES % (AUTO) 9 % (0-12); NEUTROPHILS # (AUTO) 5.1 X 10^3 (1.8-7.8); NEUTROPHILS % (AUTO) 69 % (42-75); PLATELET COUNT 194 10^3/uL (130-400)
[2019-03-21 11:47] LABS: BILIRUBIN,TOTAL 0.4 MG/DL (0.1-1.0); CALCIUM 9.7 MG/DL (8.5-10.1); CREATININE SERUM 1.06 MG/DL (0.60-1.30); POTASSIUM 3.8 MMOL/L (3.6-5.0)
[2019-03-21 11:48] LABS: ALBUMIN 4.5 GM/DL (3.2-4.5); TOTAL PROTEIN 7.4 GM/DL (6.4-8.2)
== END ==
LOC: LAB FS 11:06
PROVIDERS: ATTEND Emergency Medicine
DX: E87.6 Hypokalemia (principal)
CPT/HCPCS: 36415; 80053; 85025

== ENCOUNTER → 2020-09-02 | Outpatient (CLI) | payer MEDICARE, OTHER ==
[~2020-09-02] MED LIST changes: +ACHYD1T PO; -ALEN70TA5 PO; +ALEN70TA80 PO; +AMLO-250 PO; -AMLO5TAB9 PO; -HYDR-3820 PO; -MONT10TA24 PO; +MONT10TA32 PO; -SACU1TAB PO; +SACU1TAB2 PO; +SIMV20TA26 PO; -SIMV20TA3 PO
--- NOTE | 2020-09-02 10:32 | Diagnostic Imaging Report ---
INDICATION: Right wrist pain. AP and lateral views of the right wrist are obtained. FINDINGS: There is marked narrowing of the 1st carpometacarpal joint space with subchondral sclerosis, cyst formation and marginal spurring. Note is made of ulnar minus variation with chondrocalcinosis of triangular fibrocartilaginous complex. Atherosclerotic calcifications are seen. There is no evidence of an acute fracture or subluxation. IMPRESSION: Marked degenerative findings in the wrist without acute abnormality detected. Dictated by: Dictated on workstation # [id number]
== END ==
LOC: RAD FS 10:02
PROVIDERS: ATTEND Emergency Medicine
DX: M19.031 Primary osteoarthritis, right wrist (principal); M19.041 Primary osteoarthritis, right hand
CPT/HCPCS: 73100

== ENCOUNTER 2021-03-31 13:25 | Emergency (ER) | payer MEDICARE, OTHER ==
[~2021-03-31] VITALS: Ht 162.6 cm; Wt 60.8 kg
--- OUTSIDE RECORDS SUMMARY | 2021-03-31 13:32 | XMS REPORT | Encounter Summary ---
Author Author [facility] Organization [facility] Address Unknown Phone Unavailable Care Team Providers Care Rib Stiffener And Heel Dipper Name Role Phone Chey Rutherford Unavailable Unavailable Edgardo Knight PCP Encounter Details Care Team Description Date Type Department Amarilys Schmidt MD [address] [place] [address] [id number] [place] [address] [phone] 03/01/2021 Hospital Cardiovascular [facility] cine Encounter Remote Device Check [phone] Social History Date Tobacco Use Types Packs/Day Years Used Never Smoker Smokeless Tobacco: Never Used Comments Alcohol Use Standard Drinks/Week No 0 (1 standard drink = 0.6 o z pure alcohol) Sex Assigned at Date Recorded Not on file documented as of this encounter Functional Status Date of Assessment Functional Status Response 03/13/2018 Does the patient have a hearing impairment: No 03/13/2018 Does the patient have a visual impairment: Yes 03/13/2018 Does the patient have impaired ambulation: No 03/13/2018 Does the patient have an activity of daily living No (ADL) impairment: 03/13/2018 Does the patient have an instrumental activity of No daily living (IADL) impairment: Date of Assessment Cognitive Status Response 03/13/2018 Does the patient have a cognitive impairment: No documented as of this encounter Medications at Time of Discharge Start Date End Date Medication Sig Dispensed Refills alendronate (FOSAMAX) 70 Take 70 mg by 0 mg tablet mouth every 7 days. Take at least 30 minutes before breakfast with plain water. Do not lie down for 30 minutes. calcium carb/vit Take 1 tablet 0 D3/minerals by mouth (CALCIUM-VITAMIN D PO) daily. citalopram (CELEXA) 20 mg Take 20 mg by 0 tablet mouth daily. furosemide (LASIX) 40 mg Take 40 mg by 0 tablet mouth every morning. 08/12/2019 hydrALAZINE (APRESOLINE) Take 0.5 0 25 mg tablet tablets by mouth three times daily. HYDROcodone/acetaminophen Take 1 tablet 0 (+) (NORCO) 10/325 mg by mouth tablet every 6 hours as needed for Pain levothyroxine (SYNTHROID) Take 112 mcg 0 112 mcg tablet by mouth daily 30 minutes before breakfast. 08/12/2019 losartan (COZAAR) 100 mg Take 100 mg 0 tablet by mouth as Needed. metOLazone (ZAROXOLYN) Take 2.5 mg 0 2.5 mg tablet by mouth as Needed. Monday and montelukast (SINGULAIR) Take 10 mg by 0 10 mg tablet mouth at bedtime daily. MULTIVITAMIN PO Take 1 tablet 0 by mouth daily. 11/24/2020 mycophenolate mofetil Take one 90 tablet 3 (CELLCEPT) 500 mg tablet by tabletIndications: MG mouth daily. (myasthenia gravis) (HCC) Take on an empty stomach. potassium chloride SR Take 10 mEq 0 (K-DUR) 10 mEq tablet by mouth five times daily. Take with a meal and a full glass of water. 11/24/2020 predniSONE (DELTASONE) Take one 90 tablet 3 2.5 mg tabletIndications: tablet by MG (myasthenia gravis) mouth daily (HCC) with breakfast. 11/24/2020 pyridostigmine (MESTINON) Take one 270 tablet 3 60 mg tabletIndications: tablet by MG (myasthenia gravis) mouth three (HCC) times daily. 08/22/2018 rivaroxaban (XARELTO) 20 Take one 30 tablet 0 mg tablet tablet by mouth daily. Take with food. simvastatin (ZOCOR) 40 mg Take 40 mg by 0 tablet mouth at bedtime daily. VIT A/VIT C/VIT Take 1 tablet 0 E/ZINC/COPPER by mouth (PRESERVISION AREDS PO) daily. documented as of this encounter Discharge Disposition Code Departure Means Destination Disposition Home Home or Self Care documented in this encounter Plan of Treatment Not on filedocumented as of this encounter Procedures Comments Procedure Name Priority Date/Time Associated Diag nosis DEVICE EVALUATION - Routine 03/01/2021 Atrial fib rillation, REMOTE PPM CHARGES 9:41 AM CDT unspecified type ( HCC) Pacemaker documented in this encounter Results * DEVICE EVALUATION - REMOTE PPM (03/01/2021 9:41 AM CDT) Atrial Lead Medtronic MURJ Party Host Atrial Lead 5076-45 MURJ Model # Atrial Lead [id number] MURJ Serial # Atrial Lead 07/03/19 MURJ Implant Date RV Lead Medtronic MURJ Party Host RV Lead Model # 5076-52 MURJ RV Lead Serial [id number] MURJ # RV Lead Implant 07/03/19 MURJ Date Device Carelink Express MURJ [place] Transmitter Compatible Device Type IPG MURJ Generator Medtronic MURJ Party Host Generator Model Liliya XT DR MRI [id number] MURJ # Generator [id number] MURJ Serial # Generator [id number] MURJ Implnat Date Pacemaker no MURJ Dependant On yes MURJ Anticoagulation EP SYSTEM MRI yes MURJ CONDITIONAL Specimen Narrative Performed At MURJ Title: Normal Remote: No Events * Normal Device Function * Alerts or events: None * Battery: OK, 12.08 yrs * Sensing, impedance and thresholds rev iewed * Programmed parameters reviewed * Presenting rhythm APVS 60bpm * Heart Rate Histograms reviewed * No significant changes noted Performing Organization Address City/State/ZIP Code P dusty Number MURJ documented in this encounter Visit Diagnoses Not on filedocumented in this encounter Additional Health Concerns Assessment Noted Time PHQ-9 Depression Total Score: 4 09/12/2017 9:50 AM CDT A fall risk assessment has been completed for the pat ient 11/24/2020 9:32 AM CDT PHQ-2 Depression Total Score: 0 08/05/2020 10:35 AM TRAVELING ELECTRICIAN documented as of this encounter
--- OUTSIDE RECORDS SUMMARY | 2021-03-31 13:32 | XMS REPORT | Clinical Summary ---
Author Author [facility] Organization [facility] Address Unknown Phone Unavailable Care Team Providers Care Water Softener Service Supervisor Name Role Phone Chey Rutherford Unavailable Unavailable Edgardo Knight PCP Source Comments Some departments are not documenting in the electronic medical record. If you d o not see the information that you expected, contact Release of Information in [facility] [place] Information Management department at [phone] for further assistan ce in locating additional records.[facility] Allergies Comments Active Allergy Reactions Severity Noted Date Retain fluid and swollen leg Amlodipine SEE COMMENTS Low 09/19/2019 Azathioprine RASH Medium 09/27/2014 Throat swelling Gold Au 198 UNKNOWN Low 09/27/2014 Methotrexate RASH Medium 09/27/2014 Sulfa (Sulfonamide RASH Medium 09/27/2014 Antibiotics) Medications End Date Status Medication Sig Dispensed Refills Start Date Active citalopram (CELEXA) 20 mg Take 20 mg by 0 tablet mouth daily. Active simvastatin (ZOCOR) 40 mg Take 40 mg by 0 tablet mouth at bedtime daily. Active potassium chloride SR Take 10 mEq 0 (K-DUR) 10 mEq tablet by mouth five times daily. Take with a meal and a full glass of water. Active VIT A/VIT C/VIT Take 1 tablet 0 E/ZINC/COPPER by mouth (PRESERVISION AREDS PO) daily. Active MULTIVITAMIN PO Take 1 tablet 0 by mouth daily. Active montelukast (SINGULAIR) Take 10 mg by 0 10 mg tablet mouth at bedtime daily. Active levothyroxine (SYNTHROID) Take 112 mcg 0 112 mcg tablet by mouth daily 30 minutes before breakfast. Active HYDROcodone/acetaminophen Take 1 tablet 0 (+) (NORCO) 10/325 mg by mouth tablet every 6 hours as needed for Pain Active metOLazone (ZAROXOLYN) Take 2.5 mg 0 2.5 mg tablet by mouth as Needed. Monday and Active furosemide (LASIX) 40 mg Take 40 mg by 0 tablet mouth every morning. Active alendronate (FOSAMAX) 70 Take 70 mg by 0 mg tablet mouth every 7 days. Take at least 30 minutes before breakfast with plain water. Do not lie down for 30 minutes. Active calcium carb/vit Take 1 tablet 0 D3/minerals by mouth (CALCIUM-VITAMIN D PO) daily. Active rivaroxaban (XARELTO) 20 Take one 30 tablet 0 0 201 mg tablet tablet by 9 mouth daily. Take with food. Active hydrALAZINE (APRESOLINE) Take 0.5 0 08/11 25 mg tablet tablets by 0 mouth three times daily. Active losartan (COZAAR) 100 mg Take 100 mg 0 08/11 tablet by mouth as 0 Needed. Active pyridostigmine (MESTINON) Take one 270 tablet 3 60 mg tabletIndications: tablet by 1 MG (myasthenia gravis) mouth three (HCC) times daily. Active predniSONE (DELTASONE) Take one 90 tablet 3 2.5 mg tabletIndications: tablet by 1 MG (myasthenia gravis) mouth daily (HCC) with breakfast. Active mycophenolate mofetil Take one 90 tablet 3 10/28 (CELLCEPT) 500 mg tablet by 1 tabletIndications: MG mouth daily. (myasthenia gravis) (HCC) Take on an empty stomach. Active Problems Problem Noted Date senior care (current) use of systemic steroids 021 Aortic dilatation 08/05/2020 Overview: Formatting of this note might be differ ent from the original. L ast Assessment & Plan: Formatting of this note might be differ ent from the original. Her last CTA in 2019 showed some aortic dilatation. She will need another CTA to reassess in the next year. Pacemaker 08/23/2019 Last Assessment & Plan: Formatting of this note might be differ ent from the original. Device interrogation today shows stable sensing and pacing thresholds. She has had no atrial arrhythmias. I did n ot make any changes to her programming. Shortness of breath 12/12/2018 Last Assessment & Plan: Formatting of this note might be differ ent from the original. She describes shortness of breath with exertion and is currently on home O2 at night. She feels that this is fairl y stable. I did not make any changes to her medical regimen. MG, seropositive (myasthenia gravis) 01/26/2017 Chest pain of uncertain etiology 09/30/2014 Last Assessment & Plan: Formatting of this note might be differ ent from the original. Mrs. Pena has had a CT coronary leanna ogram for complaints of chest discomfort. This was done back for 201 5. Initially, she had an echocardiogram done at that demonstrate d normal LV function. Edema 09/30/2014 Essential hypertension 09/27/2014 Myasthenia gravis 09/27/2014 Atrial fibrillation 09/27/2014 Overview: Formatting of this note might be differ ent from the original. 1. Noted as diagnosis in 201108/22/2018 - ECHO: - Technically difficult study; i.v. tra nspulmonary contrast was used to define the endocardial borders. - Hyperdynamic left ventricular systoli c function with an estimated left ventricular ejection fraction of > 65%. - Trace mitral and tricuspid valve regu rgitation. - Mild aortic valve regurgitation. - Estimated Peak Systolic PA Pressure 3 3 mmHg Last Assessment & Plan: Formatting of this note might be differ ent from the original. Patient denies any palpitations. Her d evice interrogation shows no atrial arrhythmias. She is on Xarelto for thr omboembolic prophylaxis and denies any recent falls. We will continue ant icoagulation given her elevated [id number] score. Spinal stenosis 09/27/2014 Osteoarthrosis 09/27/2014 Encounters Care Team Description Date Type Specialty Amarilys Schmidt MD 03/01/2021 Hospital Cardiology Encounter Santana Lawton MD General Question 12/31/2020 Telephone Neurology from Last 3 Months Surgical History Surgery Date Site/Laterality Comments CHOLECYSTECTOMY HYSTERECTOMY VAGINAL PROLAPSE REPAIR TONSILLECTOMY Medical History Medical History Date Comments HTN (hypertension) Arthritis Vision decreased Myasthenia gravis (HCC) Thyroid disease Family History Medical History Relation Name Comments Hypertension Maternal Aunt Thyroid Disease Maternal Aunt Relation Name Status Comments Father bleeding disorder (Age 57) Maternal Aunt Mother (Age 28) Social History Date Tobacco Use Types Packs/Day Years Used Never Smoker Smokeless Tobacco: Never Used Comments Alcohol Use Standard Drinks/Week No 0 (1 standard drink = 0.6 o z pure alcohol) Sex Assigned at Date Recorded Not on file Last Filed Vital Signs Reading Time Taken Comments Vital Sign 147/60 11/24/2020 9:29 AM CDT Blood Pressure 82 11/24/2020 9:29 AM CDT Pulse 36.1 C (97 F) 08/05/2020 10:40 AM DROP WIRE STRINGER Temperature 16 08/05/2020 10:40 AM DROP WIRE STRINGER Respiratory Rate 96% 08/05/2020 10:40 AM DROP WIRE STRINGER Oxygen Saturation - - Inhaled Oxygen Concentration 63 kg (138 lb 12.8 oz) 11/24/2020 9:29 AM CDT Weight 163.8 cm (5' 4.49") 11/24/2020 9:29 AM CDT Height 23.47 11/24/2020 9:29 AM CDT Body Mass Index Plan of Treatment Health Maintenance Due Date Last Done Comments MEDICARE ANNUAL WELLNESS 1941 VISIT DTAP/TDAP VACCINES (1 - 1959 Tdap) PHYSICAL (COMPREHENSIVE) 1959 EXAM SHINGLES RECOMBINANT 1991 VACCINE (1 of 2) OSTEOPOROSIS 2006 SCREENING/MONITORING PNEUMONIA (PPSV23) 2006 VACCINE (1 of 1 - PPSV23) INFLUENZA VACCINE 12/27/2020 Procedures Comments Procedure Name Priority Date/Time Associated Diag nosis DEVICE EVALUATION - Routine 03/01/2021 Atrial fib rillation, REMOTE PPM CHARGES 9:41 AM CDT unspecified type ( HCC) Pacemaker from Last 3 Months Results * DEVICE EVALUATION - REMOTE PPM (03/01/2021 9:41 AM CDT) Atrial Lead Medtronic MURJ Court Orderly Atrial Lead 5076-45 MURJ Model # Atrial Lead [id number] MURJ Serial # Atrial Lead 07/03/19 MURJ Implant Date RV Lead Medtronic MURJ Court Orderly RV Lead Model # 5076-52 MURJ RV Lead Serial [id number] MURJ # RV Lead Implant 07/03/19 MURJ Date Device Carelink Express MURJ [place] Transmitter Compatible Device Type IPG MURJ Generator Medtronic MURJ Court Orderly Generator Model [place] XT DR [place] [id number] [facility] # Generator [id number] MURJ Serial # Generator [id number] MURJ Implnat Date Pacemaker no MURJ Dependant [...] Address City/State/ZIP Code P dusty Number MURJ from Last 3 Months Insurance Type Payer Benefit Subscriber ID Effective Phone Address Plan / Dates Group Medicare MEDICARE MEDICARE [id number] 2005-P PART A AND resent B PPO [employer] [id number] 2005-P MUTUAL resent ([place]) [place] [address] Advance Directives Patient Therapeutic Program Worker Explanation Type Date Recorded Advance 06/10/2016 11:48 AM Directive/DPOA
--- OUTSIDE RECORDS SUMMARY | 2021-03-31 13:32 | XMS REPORT | Clinical Summary ---
Author Author [facility] Organization [facility] Address Unknown Phone Unavailable Care Team Providers Care Convention Worker Name Role Phone PCP Unavailable Allergies Not on File Medications Not on file Active Problems Not on file Social History Date Tobacco Use Types Packs/Day Years Used Never Assessed Sex Assigned at Date Recorded Not on file Last Filed Vital Signs Not on file Plan of Treatment Not on file Results Not on filefrom Last 3 Months
[2021-03-31] MEDS ORDERED: amLODIPine 5 MG (NORVASC) TAB PO ONE (14:00)
[2021-03-31 14:02] LABS: BASOPHILS % (AUTO) 1 % (0-10); EOSINOPHILS % (AUTO) 1 % (0-10); HEMATOCRIT 38 % (35-52); HEMOGLOBIN 12.4 g/dL (11.5-16.0); LYMPHOCYTES % (AUTO) 19 % (12-44); MEAN CORPUSCULAR HEMOGLOBIN 31 pg (25-34); MEAN CORPUSCULAR HGB CONC 32 g/dL (32-36); MEAN CORPUSCULAR VOLUME 95 fL (80-99); MEAN PLATELET VOLUME 11.6 fL (9.0-12.2); MONOCYTES % (AUTO) 10 % (0-12); NEUTROPHILS # (AUTO) 3.6 X 10^3 (1.8-7.8); NEUTROPHILS % (AUTO) 70 % (42-75); PLATELET COUNT 137 10^3/uL (130-400); WHITE BLOOD COUNT 5.2 10^3/uL (4.3-11.0)
[2021-03-31 14:03] LABS: MONOCYTES # (AUTO) 0.5 X 10^3 (0.0-1.0)
--- NOTE | 2021-03-31 14:05 | ED General ---
General Chief Complaint: Cardiac/General Problems Stated Complaint: ELEV BP Source of Information: Patient Exam Limitations: No Limitations History of Present Illness Date Seen by Provider: Mar 31, 2021 Time Seen by Provider: 13:34 Initial Comments Here with report of elevated blood pressure over the last couple of weeks. Daughter reports that the patient has had increased stress with loss of one sibling due to Covid and 2 of her other siblings are sick and her in the hospital. Patient also complains of worsening of her chronic neck pain in which she has arthritis. She does take hydrocodone 10/325 1/2 to 1 tablet daily and she is prescribed 15 every 2 weeks. States that pain is from the knots on her neck and she is pointing to the spinous processes. Denies recent injury. She is worried about her blood pressure and states that it is actually been running lower recently and she is unsure why it is currently running high. She does report taking her medicine. She was previously on amlodipine but now appears to be on losartan 100 mg daily and not on amlodipine 5 mg daily. Denies adverse reaction to that. Denies chest pain, nausea, vomiting or breathing problems. Denies fever chills or other concerns. Does report her blood pressures have been up to the 190s systolic and she had several episodes of that today. She does live alone and her 2 sons live close and her daughter lives in [place]. Timing/Duration: 1 Week, Getting Worse (Blood pressure problems) Severity: Mild Associated Systoms: No Chest Pain, No Fever/Chills; Headaches; No Nausea/Vomiting, No Shortness of Air, No Weakness Allergies and Home Medications Allergies Coded Allergies: azathioprine (Verified Allergy, Unknown, 07/19/18) methotrexate (Verified Allergy, Unknown, 07/19/18) sulfamethoxazole (Verified Allergy, Unknown, 07/19/18) trimethoprim (Verified Allergy, Unknown, 07/19/18) Patient Home Medication List Home Medication List Reviewed: Yes Alendronate Sodium (Alendronate Sodium) 70 Mg Tablet, 70 MG PO WEEK, (Reported) Entered as Reported by: GARETT GASPAR on 06/23/18 1121 Amlodipine Besylate (Amlodipine Besylate) 5 Mg Tablet, 5 MG PO DAILY, (Reported) Entered as Reported by: GARETT GASPAR on 06/23/18 1112 Citalopram Hydrobromide (Citalopram HBr) 20 Mg Tablet, 20 MG PO DAILY, (Reported) Entered as Reported by: GARETT GASPAR on 06/23/18 1107 Furosemide (Furosemide) 40 Mg Tablet, 40-80 MG PO BID, (Reported) Entered as Reported by: GARETT GASPAR on 06/23/18 1111 Hydrocodone Bit/Acetaminophen (HYDROcodone/APAP 10/325 TABLET) 1 Each Tablet, 1 TAB PO PRN, (Reported) Entered as Reported by: ISAI ROGERS on 07/19/18 1141 Hydrocodone/Acetaminophen (Hydrocodone/Acetaminophen 5 MG/325 MG TAB) 1 Each Tablet, 1 EACH PO Q6H PRN for PAIN-MODERATE Prescribed by: ELEANOR LUCIANO on 07/19/18 1459 Levothyroxine Sodium (Levothyroxine Sodium) 88 Mcg Tablet, 88 MCG PO DAILY, (Reported) Entered as Reported by: GARETT GASPAR on 06/23/18 1109 Metolazone (Metolazone) 2.5 Mg Tablet, 2.5 MG PO TY, (Reported) Entered as Reported by: GARETT GASPAR on 06/23/18 1108 Montelukast Sodium (Montelukast Sodium) 10 Mg Tablet, 10 MG PO DAILY, (Reported) Entered as Reported by: GARETT GASPAR on 06/23/18 1113 Mycophenolate Mofetil (Mycophenolate Mofetil) 500 Mg Tablet, 500 MG PO BID, (Reported) Entered as Reported by: GARETT GASPAR on 06/23/18 1114 Ondansetron (Ondansetron Odt) 4 Mg Tab.rapdis, 4 MG PO Q6H PRN for NAUSEA/VOMITING Prescribed by: TENISHA ALCOCER on 06/28/18 0208 Potassium Chloride (Potassium Chloride) 10 Meq Tablet.er, 50 MEQ PO DAILY, (Reported) Entered as Reported by: GARETT GASPAR on 06/23/18 1111 Pramipexole Di-HCl (Pramipexole Dihydrochloride) 0.5 Mg Tablet, 0.5 MG PO DAILY, (Reported) Entered as Reported by: GARETT GASPAR on 06/23/18 1112 Prednisone (Prednisone) 2.5 Mg Tablet, 5 MG PO DAILY, (Reported) Entered as Reported by: GARETT GASPAR on 06/23/18 1119 Pyridostigmine Hull (Pyridostigmine Hull) 60 Mg Tablet, 60 MG PO TID, (Reported) Entered as Reported by: GARETT GASPAR on 06/23/18 1114 Rivaroxaban (Xarelto Tablet) 10 Mg Tablet, 10 MG PO DAILY, (Reported) Entered as Reported by: GARETT GASPAR on 06/23/18 1109 Sacubitril/Valsartan (Entresto 24 mg-26 mg Tablet) 1 Each Tablet, 1 TAB PO BID, (Reported) Entered as Reported by: GARETT GASPAR on 06/23/18 1108 Simvastatin (Simvastatin) 20 Mg Tablet, 20 MG PO DAILY, (Reported) Entered as Reported by: GARETT GASPAR on 06/23/18 1113 Review of Systems Review of Systems Constitutional: see HPI; No chills, No fever EENTM: No nose congestion, No throat pain Respiratory: No short of breath Cardiovascular: No chest pain, No edema, No palpitations Gastrointestinal: No abdominal pain, No nausea, No vomiting Genitourinary: No dysuria, No frequency Musculoskeletal: No back pain; muscle pain; No muscle weakness; neck pain, other (Restless leg syndrome. Chronic pain to the neck along the spine. She is currently under treatment for osteoarthritis.) Skin: No change in color, No lesions Psychiatric/Neurological: Headache (Secondary to neck pain); Denies Pre-Exist ing Deficit, Denies Weakness All Other Systems Reviewed Negative Unless Noted: Yes Past Sftirql-Xoddop-Oavqds Hx Patient Social History Tobacco Use?: No Use of E-Cig and/or Vaping dev: No Substance use?: No Alcohol Use?: No Pt feels they are or have been: No Immunizations Up To Date First/Initial COVID19 Vaccinat: Early 2020 Second COVID19 Vaccination Gregory: Early 2020 COVID19 Vaccine Alkylation Operator: Onesimo Seasonal Allergies Seasonal Allergies: No Past Medical History Surgeries: Yes Gallbladder, Hysterectomy, Rectal Respiratory: No Cardiac: Yes Neurological: Yes (MYESTHENIA GRAVIS) Genitourinary: No Gastrointestinal: No Musculoskeletal: No Endocrine: Yes Hypothyroidsim Cancer: No Psychosocial: No Integumentary: No Blood Disorders: No Family Medical History Reviewed Nursing Family Hx No Pertinent Family Hx Physical Exam Vital Signs Vital Signs - First Documented 03/31/21 13:31 Temp 36.6 Pulse 84 Resp 20 B/P (MAP) 168/63 (98) Pulse Ox 96 O2 Delivery Room Air Capillary Refill : Height, Weight, BMI Height: 5'4.00" Weight: 170lbs. 1.0oz. 77.608144ql; 32.8 BMI Method:Stated General Appearance: No Apparent Distress, WD/WN, Thin HEENT: PERRL/EOMI, Pharynx Normal Neck: Supple, Tender Midline (Along the knobby prominence from the spinous processes.) Respiratory: Normal Breath Sounds, No Accessory Muscle Use, No Respiratory Distress Cardiovascular: Regular Rate, Rhythm, No Murmur Gastrointestinal: Non Tender, Soft Back: Normal Inspection, No CVA Tenderness, No Vertebral Tenderness Extremity: Normal Range of Motion, Non Tender Neurologic/Psychiatric: Alert, Oriented x3 Skin: Normal Color, Warm/Dry Progress/Results/Core Measures Suspected Sepsis SIRS Temperature: Pulse: Respiratory Rate: Laboratory Tests 03/31/21 13:38: White Blood Count 5.2 Blood Pressure / Mean: Laboratory Tests 03/31/21 13:38: Creatinine 0.88, Platelet Count 137, Total Bilirubin 0.4 Results/Orders Lab Results Laboratory Tests Test 03/31/21 13:38 Range/Units White Blood Count 5.2 4.3-11.0 10^3/uL Red Blood Count 4.04 3.80-5.11 10^6/uL Hemoglobin 12.4 11.5-16.0 g/dL Hematocrit 38 35-52 % Mean Corpuscular Volume 95 80-99 fL Mean Corpuscular Hemoglobin 31 25-34 pg Mean Corpuscular Hemoglobin Concent 32 32-36 g/dL Red Cell Distribution Width 13.4 10.0-14.5 % Platelet Count 137 130-400 10^3/uL Mean Platelet Volume 11.6 9.0-12.2 fL Immature Granulocyte % (Auto) 0 % Neutrophils (%) (Auto) 70 42-75 % Lymphocytes (%) (Auto) 19 12-44 % Monocytes (%) (Auto) 10 0-12 % Eosinophils (%) (Auto) 1 0-10 % Basophils (%) (Auto) 1 0-10 % Neutrophils # (Auto) 3.6 1.8-7.8 X 10^3 Lymphocytes # (Auto) 1.0 1.0-4.0 X 10^3 Monocytes # (Auto) 0.5 0.0-1.0 X 10^3 Eosinophils # (Auto) 0.0 0.0-0.3 10^3/uL Basophils # (Auto) 0.0 0.0-0.1 10^3/uL Immature Granulocyte # (Auto) 0.0 0.0-0.1 10^3/uL Sodium Level 135 135-145 MMOL/L Potassium Level 4.9 3.6-5.0 MMOL/L Chloride Level 101 98-107 MMOL/L Carbon Dioxide Level 23 21-32 MMOL/L Anion Gap 11 5-14 MMOL/L Blood Urea Nitrogen 15 7-18 MG/DL Creatinine 0.88 0.60-1.30 MG/DL Estimat Glomerular Filtration Rate 62 BUN/Creatinine Ratio 17 Glucose Level 130 H 70-105 MG/DL Calcium Level 9.6 8.5-10.1 MG/DL Corrected Calcium 8.5-10.1 MG/DL Magnesium Level 1.8 1.6-2.4 MG/DL Total Bilirubin 0.4 0.1-1.0 MG/DL Aspartate Amino Transf (AST/SGOT) 24 5-34 U/L Alanine Aminotransferase (ALT/SGPT) 8 0-55 U/L Alkaline Phosphatase 53 40-136 U/L Troponin I < 0.30 <0.30 NG/ML Total Protein 6.7 6.4-8.2 GM/DL Albumin 4.6 H 3.2-4.5 GM/DL My Orders Orders - MARK SHERMAN MD Ed Iv/Invasive Line Start (03/31/21 13:50) Ekg Tracing (03/31/21 13:50) Cbc With Automated Diff (03/31/21 13:50) Comprehensive Metabolic Panel (03/31/21 13:50) Magnesium (03/31/21 13:50) Troponin I Fs (03/31/21 13:50) Hydrocodone/Apap 10/325 Tablet (Lortab 1 (03/31/21 13:50) Amlodipine Tablet (Norvasc Tablet) (03/31/21 14:00) Medications Given in ED Current Medications Medications Dose Ordered Sig/Erik Route Start Time Stop Time Status Last Admin Dose Admin Amlodipine Besylate 5 mg ONCE ONCE PO 03/31/21 14:00 03/31/21 14:01 DC 03/31/21 13:58 5 MG Vital Signs/I&O 03/31/21 13:31 Temp 36.6 Pulse 84 Resp 20 B/P (MAP) 168/63 (98) Pulse Ox 96 O2 Delivery Room Air Capillary Refill : Progress Note : Progress Note Seen and evaluated. IV, labs, EKG ordered. Hydrocodone 10/325 1 tab p.o. for the chronic pain. Amlodipine 5 mg p.o. ordered. Blood pressure 160s over 60s prior to administration of amlodipine. Monitor patient. 1458: Blood pressure 140s over 60s and patient feeling much better now. No acute findings on labs or EKG. No indication for admission. I will send short prescription for amlodipine as needed blood pressure greater than 160 as well as a few tablets of hydrocodone. She will follow up with her doctor. We talked about topical pain relief as well. Her daughter offered for her to stay at her house but the patient would prefer to stay at home and she has 2 sons that live close by as well as a [id number]. Discharged home with return precautions. Patient verbalized understanding of instructions and agreement with plan. ECG Initial ECG Impression Date: Mar 31, 2021 Initial ECG Impression Time: 13:46 Initial ECG Rate: 69 Initial ECG Rhythm: Normal Sinus Comment Sinus rhythm with normal axis. No evidence of ST elevation AK. Similar to previous of 06/28/2018. Interpreted by me. 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 Decision time for Depature: 15:00 Referrals: GABRIEL CHINCHILLA DO (PCP/Family) Primary Care Physician Patient Instructions: Chronic Neck Pain (DC), High Blood Pressure ED Add. Discharge Instructions: All discharge instructions reviewed with patient and/or family. Voiced understanding. You may take the amlodipine 1 tablet daily for blood pressure greater than 160 mmHg after taking your other blood pressure medicine. Take pain medications as directed. You may use topical icy hot with lidocaine or similar to area of neck and shoulders daily or per package directions as needed for pain. If you are not taking the prescribed pain medicine then you may take Tylenol/acetaminophen 1000 mg every 8 hours as needed for pain as well. Do not take both at the same time as they both have acetaminophen in them. Return for worse pain, fever, vomiting, weakness, breathing problems, chest pain, sweating or other concerns as needed. Scripts Hydrocodone/Acetaminophen (Hydrocodone-Acetamin 10-325 mg) 1 Each Tablet 1 EACH PO Q12H PRN for PAIN-MODERATE (5-7), #8 TAB 0 Refills Prov: MARK SHERMAN MD 03/31/21 Amlodipine Besylate (Amlodipine Besylate) 5 Mg Tablet 5 MG PO DAILY PRN for BLOOD PRESSURE, #15 TAB You may take 1 tablet every 24 hours as needed for blood pressure greater than 160 mmHg after taking your other medicine. Prov: MARK SHERMAN MD 03/31/21 MARK SHERMAN MD Mar 31, 2021 14:05
[2021-03-31 14:11] LABS: BUN/CREATININE RATIO 17; CARBON DIOXIDE 23 MMOL/L (21-32); CHLORIDE 101 MMOL/L (98-107); CREATININE SERUM 0.88 MG/DL (0.60-1.30); GFR ESTIMATED 62; GLUCOSE 130 MG/DL (70-105); POTASSIUM 4.9 MMOL/L (3.6-5.0); SODIUM 135 MMOL/L (135-145)
[2021-03-31 14:12] LABS: ALANINE AMINOTRANSFERASE 8 U/L (0-55); ALBUMIN 4.6 GM/DL (3.2-4.5); ALKALINE PHOSPHATASE 53 U/L (40-136); BILIRUBIN,TOTAL 0.4 MG/DL (0.1-1.0); CALCIUM 9.6 MG/DL (8.5-10.1); MAGNESIUM 1.8 MG/DL (1.6-2.4); TOTAL PROTEIN 6.7 GM/DL (6.4-8.2)
[2021-03-31] MEDS ORDERED: HYDR-3820 PO (15:04)
[2021-03-31] MEDS ORDERED: AMLO-250 PO (15:04)
[2021-03-31 15:18] VITALS: BP 142/59
== END 2021-03-31 15:19 | disposition home or self-care (01) ==
LOC: EDUNIT# 13:25 → ER FS 13:27
DX: R03.0 Elevated blood-pressure reading, without diagnosis of hypertension (principal); M47.812 Spondylosis without myelopathy or radiculopathy, cervical region; E03.9 Hypothyroidism, unspecified; Z79.890 Hormone replacement therapy; Z79.01 Long term (current) use of anticoagulants; Z79.899 Other long term (current) drug therapy; Z79.52 Long term (current) use of systemic steroids
CPT/HCPCS: 36415; 80053; 83735; 84484; 85025; 93005

== ENCOUNTER → 2022-03-02 | Outpatient (CLI) | payer MEDICARE, OTHER ==
[~2022-03-02] MED LIST changes: +HYDR-3820 PO; +MONT-40 PO; -MONT10TA32 PO
--- NOTE | 2022-03-02 11:37 | Diagnostic Imaging Report ---
INDICATION: Contusion. COMPARISON: 07/19/2018. FINDINGS: Old healed upper lateral left rib deformities are chronic. Old healed left clavicular shaft fracture is chronic. There has been a pacemaker placed and the battery overlies the left chest. There is no pneumothorax. There is no pleural fluid. No findings of pneumonia. No new fracture. The healed deformities of the left 2nd through 5th ribs are chronic. IMPRESSION: Old healed left upper rib fracture deformities and old healed deformities to the left shoulder girdle. No new injury or acute pathology. Clear lungs with no pleural abnormality. Dictated by: Dictated on workstation # [id number]
== END ==
LOC: RAD FS 10:38
PROVIDERS: ATTEND Emergency Medicine
DX: S20.212A Contusion of left front wall of thorax, initial encounter (principal); Z87.81 Personal history of (healed) traumatic fracture; X58.XXXA Exposure to other specified factors, initial encounter
CPT/HCPCS: 71101

== ENCOUNTER → 2022-07-08 | Outpatient (CLI) | payer MEDICARE, OTHER ==
--- NOTE | 2022-07-08 16:36 | Diagnostic Imaging Report ---
PROCEDURE: CT maxillofacial without contrast. TECHNIQUE: Multiple contiguous axial images were obtained through the facial bones without the use of intravenous contrast. Auto Exposure Controls were utilized during the CT exam to meet ALARA standards for radiation dose reduction. INDICATION: Chronic sinusitis. COMPARISON: Maxillofacial CT 07/19/2018. FINDINGS: Mild mucosal thickening in the right frontal sinus. Paranasal sinuses are otherwise clear. No air-fluid levels. The ostiomeatal units and frontal recesses are patent. Large right middle turbinate jose bullosa and marked leftward bowing of the nasal septum. Nasal septum is intact. The orbits are unremarkable. No maxillofacial fractures. Advanced degenerative changes in the temporomandibular joints. The mastoids and middle ears are clear where seen. IMPRESSION: 1. Mild mucosal thickening in the right frontal sinus. The paranasal sinuses are otherwise clear. 2. Large right middle turbinate jose bullosa and marked leftward bowing of the nasal septum. Dictated by: Dictated on workstation # [id number]
== END ==
LOC: RAD FS 15:15
PROVIDERS: ATTEND Emergency Medicine
DX: J32.0 Chronic maxillary sinusitis (principal); G70.00 Myasthenia gravis without (acute) exacerbation
CPT/HCPCS: 70486